=== PATIENT | male | born 1955 | race Caucasian/White ===

== ENCOUNTER → 2022-09-07 10:08 | Outpatient (CLI) | payer MEDICARE, OTHER, SELFPAY ==
[2022-09-07 18:14] LABS: Anion Gap 12.1 mEq/L (5-15); Blood Urea Nitrogen 15 mg/dl (9-20); Calcium 8.7 mg/dl (8.4-10.2); Carbon Dioxide 29 mmol/L (22.0-30.0); Chloride 99 mmol/L (98-107); Estimated Glomerular Filt Rate 113 ml/min (>60); GFR (African American) 137 ML/MIN (>60); Glucose 118 mg/dl (74-100); Potassium 4.1 mmoL/L (3.5-5.1); Sodium 136 mmol/L (136-145)
== END ==
PROVIDERS: PCP Nurse Practitioner; Visit Provider Nurse Practitioner
DX: E78.5 Hyperlipidemia, unspecified (principal); I10 Essential (primary) hypertension
CPT/HCPCS: 80048

== ENCOUNTER → 2023-02-04 23:14 | Outpatient (CLI) | payer MEDICARE, SELFPAY ==
[2023-02-04 19:38] LABS: Alanine Aminotransferase 51 U/L (12-78); Albumin Level 3.8 g/dl (3.5-5.0); Albumin/Globulin Ratio 1.2 (1.1-1.8); Alkaline Phosphatase 54 U/L (38-126); Aspartate Amino Transferase 46 U/L (17-59); Bilirubin,Total 0.5 mg/dl (0.2-1.3); Blood Urea Nitrogen 17 mg/dl (9-20); Calcium 8.9 mg/dl (8.4-10.2); Carbon Dioxide 32 mmol/L (22.0-30.0); Chol/HDL Ratio 2.9 (1-3.5); Cholesterol 214 mg/dl (140-200); Estimated Glomerular Filt Rate 85 ml/min (>60); GFR (African American) 102 ML/MIN (>60); Globulin 3.2 g/dL (1.3-3.2); Glucose 119 mg/dl (74-100); HDL Cholesterol 73 mg/dl (40-60); Sodium 134 mmol/L (136-145); Triglycerides 89 mg/dl (30-150); VLDL Cholesterol 18 mg/dL (0-40)
[2023-02-04 19:39] LABS: Basophils % 0.5 % (0.1-2.0); Eosinophils # 0.1 K/mm3 (0.0-0.4); Hematocrit 44.5 % (42.0-52.0); Hemoglobin 14.3 g/dL (14.1-18.0); Lymphocytes # 0.7 K/mm3 (0.7-4.5); Lymphocytes % 10.7 % (10-50); Mean Corpuscular HGB Conc 32.1 g/dL (31.8-35.4); Mean Corpuscular Hemoglobin 30.4 pg (27.0-31.2); Mean Corpuscular Volume 94.8 fl (80-94); Mean Platelet Volume 10.6 fl (7.4-10.4); Monocytes # 0.4 K/mm3 (0.1-1.0); Monocytes % 6.4 % (1.7-9.3); Neutrophils % 81.4 % (37.0-80.0); Platelet Count 248 K/mm3 (142-424); Red Cell Distribution Width 13.5 % (11.5-17.5); White Blood Count 6.1 K/mm3 (4.8-10.8)
[2023-02-04 19:49] LABS: Direct LDL Cholesterol 107.29 mg/dL (100-129)
[2023-02-04 19:57] LABS: 25-OH Vitamin D, Total 37.5 ng/mL (30-100)
[2023-02-04 20:02] LABS: Creatinine,Urine Random 50 mg/dL (Not Estab.)
[2023-02-04 20:10] LABS: Microalbumin < 6.000 mg/L (0-16.7); Prostate Specific Ag Screen 0.6 ng/ml (0.0-4.0); Thyroid Stimulating Hormone 1.49 uIU/mL (0.465-4.68)
[2023-02-04 20:29] LABS: Vitamin B12 634 pg/mL (239-931)
[2023-02-04 21:02] LABS: Anion Gap 8.7 mEq/L (5-15); Chloride 98 mmol/L (98-107); Potassium 4.7 mmoL/L (3.5-5.1)
== END ==
PROVIDERS: PCP Nurse Practitioner; Visit Provider Nurse Practitioner
DX: E53.8 Deficiency of other specified B group vitamins (principal); E78.5 Hyperlipidemia, unspecified; I10 Essential (primary) hypertension; R73.01 Impaired fasting glucose; E55.9 Vitamin D deficiency, unspecified; Z12.5 Encounter for screening for malignant neoplasm of prostate
CPT/HCPCS: 80053; 80061; 82043; 82306; 82570; 82607; 84443; 85025; G0103

== ENCOUNTER → 2023-06-15 09:44 | Outpatient (CLI) | payer MEDICARE, SELFPAY | PROVIDERS: PCP Nurse Practitioner; Visit Provider Nurse Practitioner | DX: S61.207A Unspecified open wound of left little finger without damage to nail, initial encounter (principal); B95.7 Other staphylococcus as the cause of diseases classified elsewhere | CPT/HCPCS: 87070; 87077; 87186; 87205 ==

== ENCOUNTER → 2023-09-15 13:28 | Outpatient (CLI) | payer MEDICARE, SELFPAY | PROVIDERS: PCP Nurse Practitioner; Visit Provider Nurse Practitioner | DX: G47.30 Sleep apnea, unspecified (principal); R40.0 Somnolence; R06.83 Snoring | CPT/HCPCS: G0399 ==

== ENCOUNTER → 2023-11-09 15:15 | Outpatient (POV) | payer MEDICARE, SELFPAY | PROVIDERS: PCP Nurse Practitioner; Visit Provider Dermatology | DX: Z00.00 Encounter for general adult medical examination without abnormal findings (principal) ==

== ENCOUNTER 2024-01-25 09:24 | Outpatient (POV) | payer MEDICARE, SELFPAY | END 2024-01-25 23:59 | disposition home or self-care (01) | LOC: SC 09:25 | PROVIDERS: PCP Nurse Practitioner; Visit Provider Dermatology | DX: Z00.00 Encounter for general adult medical examination without abnormal findings (principal) ==

== ENCOUNTER → 2024-02-28 19:57 | Outpatient (CLI) | payer MEDICARE, OTHER, SELFPAY | PROVIDERS: PCP Nurse Practitioner; Visit Provider Nurse Practitioner Family | DX: G47.33 Obstructive sleep apnea (adult) (pediatric) (principal); G47.61 Periodic limb movement disorder | CPT/HCPCS: 95811 ==

== ENCOUNTER 2024-09-18 10:19 | Outpatient (CLI) | payer MEDICARE, OTHER, SELFPAY ==
[2024-09-18 20:11] LABS: Alanine Aminotransferase 65 U/L (12-78); Alkaline Phosphatase 49 U/L (38-126); Anion Gap 8.3 mEq/L (5-15); Aspartate Amino Transferase 63 U/L (17-59); Bilirubin,Total 0.6 mg/dl (0.2-1.3); Blood Urea Nitrogen 18 mg/dl (9-20); Calcium 9.8 mg/dl (8.4-10.2); Carbon Dioxide 31 mmol/L (22.0-30.0); Chloride 103 mmol/L (98-107); Chol/HDL Ratio 2.6 (1-3.5); Cholesterol 287 mg/dl (140-200); Estimated Glomerular Filt Rate 96 ml/min (>60); GFR (African American) 117 ML/MIN (>60); Globulin 3.9 g/dL (1.3-3.2); Glucose 125 mg/dl (74-100); HDL Cholesterol 109 mg/dl (40-60); Potassium 4.3 mmoL/L (3.5-5.1); Sodium 138 mmol/L (136-145); Total Protein,Serum 7.9 g/dl (6.3-8.2); Triglycerides 88 mg/dl (30-150); VLDL Cholesterol 18 mg/dL (0-40)
[2024-09-18 20:20] LABS: Basophils % 0.8 % (0.1-2.0); Eosinophils % 0.5 % (0.1-12.0); Hematocrit 43.9 % (42.0-52.0); Hemoglobin 14.5 g/dL (14.1-18.0); Lymphocytes # 0.4 K/mm3 (0.7-4.5); Lymphocytes % 8.6 % (10-50); Mean Corpuscular Hemoglobin 31.4 pg (27.0-31.2); Mean Corpuscular Volume 95.4 fl (80-94); Mean Platelet Volume 10.5 fl (7.4-10.4); Monocytes # 0.3 K/mm3 (0.1-1.0); Monocytes % 5.2 % (1.7-9.3); Neutrophils # 4.2 K/mm3 (1.8-7.8); Neutrophils % 84.9 % (37.0-80.0); Platelet Count 198 K/mm3 (142-424); Red Blood Count 4.61 M/mm3 (4.60-6.20); Red Cell Distribution Width 13.7 % (11.5-17.5); White Blood Count 4.9 K/mm3 (4.8-10.8)
[2024-09-18 20:26] LABS: 25-OH Vitamin D, Total 39.3 ng/mL (30-100)
[2024-09-18 20:34] LABS: Direct LDL Cholesterol 164.91 mg/dL (100-129)
[2024-09-18 20:45] LABS: Prostate Specific Ag Screen 0.5 ng/ml (0.0-4.0); Thyroid Stimulating Hormone 0.91 uIU/mL (0.465-4.68)
[2024-09-18 21:04] LABS: Vitamin B12 450 pg/mL (239-931)
[2024-09-18 21:14] LABS: Hemoglobin A1C 5.9 % (4.0-6.0)
[2024-09-18 21:15] LABS: Microalbumin < 6.000 mg/L (0-16.7)
[2024-09-18 21:53] LABS: Creatinine,Urine Random 42 mg/dL (Not Estab.)
== END 2024-09-18 23:59 | disposition home or self-care (01) ==
LOC: LAB.DROPOF 09-19 10:20
PROVIDERS: PCP Nurse Practitioner; Visit Provider Nurse Practitioner
DX: Z12.5 Encounter for screening for malignant neoplasm of prostate (principal); I10 Essential (primary) hypertension; G61.81 Chronic inflammatory demyelinating polyneuritis; E53.8 Deficiency of other specified B group vitamins; R73.01 Impaired fasting glucose; E66.9 Obesity, unspecified; G47.33 Obstructive sleep apnea (adult) (pediatric); E55.9 Vitamin D deficiency, unspecified; E78.5 Hyperlipidemia, unspecified; R40.0 Somnolence; Z68.32 Body mass index [BMI] 32.0-32.9, adult; Z87.891 Personal history of nicotine dependence
CPT/HCPCS: 80053; 80061; 82043; 82306; 82570; 82607; 83036; 84443; 85025; G0103

== ENCOUNTER 2025-01-24 09:07 | Outpatient (CLI) | payer MEDICARE, OTHER, SELFPAY ==
[2025-01-24 19:33] LABS: Hemoglobin A1C 6.1 % (4.0-6.0)
[2025-01-24 20:07] LABS: Alanine Aminotransferase 58 U/L (12-78); Albumin/Globulin Ratio 1.1 (1.1-1.8); Alkaline Phosphatase 54 U/L (38-126); Anion Gap 9.6 mEq/L (5-15); Aspartate Amino Transferase 53 U/L (17-59); Bilirubin,Total 0.6 mg/dl (0.2-1.3); Blood Urea Nitrogen 24 mg/dl (9-20); Calcium 9.4 mg/dl (8.4-10.2); Carbon Dioxide 29 mmol/L (22.0-30.0); Chloride 101 mmol/L (98-107); Chol/HDL Ratio 2.4 (1-3.5); Cholesterol 231 mg/dl (140-200); Estimated Glomerular Filt Rate 84 ml/min (>60); GFR (African American) 102 ML/MIN (>60); Globulin 3.5 g/dL (1.3-3.2); Glucose 130 mg/dl (74-100); HDL Cholesterol 98 mg/dl (40-60); Potassium 4.6 mmoL/L (3.5-5.1); Sodium 135 mmol/L (136-145); Total Protein,Serum 7.5 g/dl (6.3-8.2); Triglycerides 97 mg/dl (30-150); VLDL Cholesterol 19 mg/dL (0-40)
[2025-01-24 20:55] LABS: HIV Combo NEGATIVE (Negative)
[2025-01-24 21:04] LABS: Hepatitis C Ab Qual. W/ RFX NEGATIVE (Negative)
== END 2025-01-24 23:59 | disposition home or self-care (01) ==
LOC: LAB.DROPOF 01-25 15:19
PROVIDERS: PCP Nurse Practitioner; Visit Provider Nurse Practitioner
DX: E78.5 Hyperlipidemia, unspecified (principal); I10 Essential (primary) hypertension; R73.01 Impaired fasting glucose; Z13.0 Encounter for screening for diseases of the blood and blood-forming organs and certain disorders involving the immune mechanism; E78.49 Other hyperlipidemia
CPT/HCPCS: 80053; 80061; 83036; 86803; 87389

== ENCOUNTER 2025-09-19 10:30 | Outpatient (CLI) | payer MEDICARE, OTHER, SELFPAY ==
--- OUTSIDE RECORDS SUMMARY | 2025-07-24 09:05 | XMS_ITS | Encounter Summary ---
Author Organization [place] [address] Care Team Providers Care Toy Designer Name Role Phone Becca Dumont APRN Primary Care Provider [phone] Reva Jacob MD Unavailable Reason for Visit * Reason Comments Follow-up Encounter Details Date Type Department Care Team ([facility] Contact Info) Description 07/24/2025 9:05 AM EDT Office Visit [facility] Neurology [facility] [address] [place] [address] Brien Hogan MD [address] [place] [address] CIDP (chronic inflammatory demyelinating polyneuropathy) (HCC) (Primary Dx); MGUS (monoclonal gammopathy of unknown significance); Drug-induced Chicago's syndrome; Immunosuppression Social History Tobacco Use Types Packs/Day Years Used Date Smoking Tobacco: Former Cigarettes Q uit: 11/29/1969 Smokeless Tobacco: Never Tobacco Cessation:Counseling Given: Not Answered Alcohol Use Standard Drinks/Week Comments Yes 0 (1 standard drink = 0.6 oz pur e alcohol) 5-6 times a weeks-liquor Sex and Gender Information Value Date Recorded Sex Assigned at Not on file Legal Sex Male 10:57 PM EDT Gender Identity Not on file Sexual Orientation Not on file documented as of this encounter Last Filed Vital Signs Vital Sign Reading Time Taken Comments Blood Pressure 138/58 07/24/2025 8:46 AM EDT Pulse 76 07/24/2025 8:46 AM EDT Temperature 36.8 C (98.2 F) 07/24/2025 8:46 AM EDT Respiratory Rate - - Oxygen Saturation 95% 07/24/2025 8:46 AM EDT Inhaled Oxygen Concentration - - Weight 102.1 kg (225 lb) 07/24/2025 8:46 AM EDT Height 180.3 cm (5' 11 ) 07/24/2025 8:46 AM EDT Body Mass Index 31.38 07/24/2025 8:46 AM EDT documented in this encounter Ordered Prescriptions Prescription Sig Dispense Quantity Refills Last Filled Start Date End Date predniSONE (DELTASONE) 5 mg Oral Tablet Take 3 Tablets by mouth daily. 270 Tablet 3 07/24/2025 documented in this encounter Progress Notes * Brien Hogan MD - 07/24/2025 9:05 AM EDT Assessment/Plan: CIDP associated with IgM lambda MGUS Stable. Dec Gamunex from 2g/kg q4wks to q5wks. Dec prednisone from 20mg/d to 15mg/d. Cont Vit D/Ca. Hopefully zanubrutinib will allow wean Again discussed starting a low to moderate intense exercise regimen daily such as walking for 30 minutes. Also recommend he start focusing on low-carb/fat diet. IgM Lambda MGUS Continue zanubrutinib. Likely needs a couple more months to achieve efficacy. F/u 2 mos HPI: Today's date: 07/24/2025 Last visit: 04/25/2025 Patient accompanied by/additional history obtained from: Alone Since his last visit saw Dr. Jacob and underwent additional MGUS w/u. STarted on zanubrutinib > 1 month ago. No side effects. Symptoms are otherwise very stable. He has chronic numbness in his hands and from the knees distally. He has difficulty answering whether or not he has weakness. There is no change or wearing off between IVIG cycles. He is currently getting IVIG every 4 weeks. He plans on once again going to [place] for an extended period of time in November. He would like tostrategically plan his IVIG to get it done just before he leaves and right after he returns. He plans on being there for the entire month of November and 1 to 2 weeks of December if possible. He does not eat a particular diet or exercise. Has poor balance with rapid turns but otherwise feels stable. Not using an ambulation assist device. Not falling. Current CIDP meds: IVIG (Gamunex C) 2g/kg q 4 wks over 3d @ infusion center [facility] via lashay cath Prednisone 20 mg/d Vit D3 2000IU/d Ca 1000mg/d Zanubrutinib CIDP Treatment Summary: Onset LE>UE symmetric weakness 06/13 Diagnosed with CIDP ~06/14 after suggestive EMG/NCS IVIG (octagam) started 07/15 (2g/kg q month) Brief trial of SCIG but he thought it was too laborious and changed back to IVIG. Prednisone 60mg started 09/15 (normal baseline DEXA 09/15) Prednisone wean begun 04/16 IVIG reduced to q6 wks 07/17 Port placed 08/17 DEXA scan benign 10/10/20 IVIG inc to q 5 wks due to gen weakness/dec balance 02/16 with improvement Prednisone increased to 30mg daily 1 month (07/19) then down to 20mg daily (08/19) w/ subsequent wean Prednisone jimi 10mg 01/21 with worse ankle DF so inc back to 20mg/d w/ resolution of DF weakness DEXA scan benign 01/13/23 Prednisone dose inc to 40mg/d 04/20 without much additional benefit or side effects so subsequently weaned slowly Prednisone dose inc from 10 to 20mg/d 08/22 due to bilateral DF weakness on exam Prednisone dose inc from 20 to 30mg/d 09/21 due to mild R DF weakness on exam Trial of IVIG-> vyvgart hytrulo 01/23 with resultant immediate worsening of distal UE>LE strength. Prednisone inc to 30mg/d w/o improvement. Transitioned back to IVIG q4wk 03/23 with significant improvement and prednisone dec to 20mg/d. DEXA WNL 02/20 Zanubrutinib started 07/23 Past Medical History: Diagnosis Date Arthritis Hypercholesterolemia Hypertension Spinal stenosis Patient Active Problem List Diagnosis CIDP (chronic inflammatory demyelinating polyneuropathy) (HCC) MGUS (monoclonal gammopathy of unknown significance) Immunosuppression Drug-induced Sarah's syndrome Past Surgical History: Procedure Laterality Date ANKLE FRACTURE SURGERY Right 02/27/2020 RIGHT ANKLE OPEN REDUCTION INTERNAL FIXATION MEDIAL MALLEOLUS FRACTURE; Surgeon: Inderjit Hollingsworth MD;Location: [facility]; Service: Orthopedics BACK SURGERY Lumbar surgery COLONOSCOPY HAND SURGERY IR PORT PLACEMENT EQUAL OR > 5 YEARS 08/16/2019 IR PORT PLACEMENT EQUAL OR > 5 YEARS 08/16/2019 Wilbert Dixon MD [facility] IR IR ULTRASOUND GUIDED VASCULAR ACCESS 08/16/2019 IR ULTRASOUND GUIDED VASCULAR ACCESS 08/16/2019 Wilbert Dixon MD [facility] IR LUMBAR DISC SURGERY Bilateral 11/13/2016 LUMBAR LAMINECTOMY BILATERAL MESIAL FASCIECTOMY L4/5; Surgeon: Les Hutton MD; Location: [facility]IN OR; Service: Neurosurgery SHOULDER SURGERY VASECTOMY Social History Tobacco Use Smoking status: Former Current packs/day: 0.00 Types: Cigarettes Quit date: 11/29/1969 Years since quittin.6 Smokeless tobacco: Never Vaping Use Vaping status: Never Used Substance Use Topics Alcohol use: Yes Comment: 5-6 times a weeks-liquor Drug use: No Current Outpatient Medications Medication Sig Dispense Refill aspirin 81 mg Oral Tablet, Chewable Take 81 mg by mouth daily. atorvastatin (LIPITOR) 40 mg Oral Tablet Take 40 mg by mouth daily. Cholecalciferol, Vitamin D3, 2,000 unit Oral Capsule Take 2,000 Units by mouth daily. Coenzyme Q10 100 mg Oral Capsule Take by mouth. diphenhydrAMINE (BENADRYL) 25 mg Oral Capsule Take 25 mg by mouth every 6 hours as needed for Itching. EPINEPHrine (EPIPEN) 0.3 mg/0.3 mL Inj Auto-Injector Inject 0.3 mL into the muscle as needed for Anaphylaxis. 1 Each 12 hydroCHLOROthiazide (HYDRODIURIL) 25 mg Oral Tablet immune globulin (human) Inject into the vein Every 6 weeks. lisinopriL (PRINIVIL;ZESTRIL) 40 mg Oral Tablet Take 40 mg by mouth daily. metFORMIN (GLUCOPHAGE XR) 500 mg Oral ER 24 hr tablet Take 500 mg by mouth daily (with breakfast). multivitamin (THERAGRAN) Oral Tablet Take by mouth daily. UNABLE TO FIND Take 1,000 mg by mouth. Med Name: calcium zanubrutinib (BRUKINSA) 80 mg Oral Capsule Take by mouth. zanubrutinib (BRUKINSA) 80 mg Oral Capsule Take by mouth. predniSONE (DELTASONE) 5 mg Oral Tablet Take 3 Tablets by mouth daily. 270 Tablet 3 zanubrutinib 80 mg Oral Capsule Take 2 Capsules by mouth 2 times daily. 120 Capsule 5 No current facility-administered medications for this visit. Physical Examination: Vitals: 07/24/25 0846 BP: 138/58 BP Location: Left arm Patient Position: Sitting Pulse: 76 Temp: 98.2 ??F (36.8 ??C) TempSrc: Forehead SpO2: 95% Weight: 225 lb (102.1 kg) Height: 5' 11 (1.803 m) Wt Readings from Last 20 Encounters: 07/24/25 225 lb (102.1 kg) 07/02/25 220 lb 8 oz (100 kg) 06/28/25 222 lb 14.4 oz (101.1 kg) 06/27/25 222 lb 8 oz (100.9 kg) 06/26/25 223 lb 8 oz (101.4 kg) 05/31/25 222 lb 11.2 oz (101 kg) 05/30/25 223 lb 3.2 oz (101.2 kg) 05/29/25 222 lb 8 oz (100.9 kg) 05/28/25 223 lb 6.4 oz (101.3 kg) 05/07/25 222 lb 11.2 oz (101 kg) 05/03/25 225 lb 4.8 oz (102.2 kg) 05/02/25 224 lb 1.6 oz (101.7 kg) 05/01/25 223 lb 8 oz (101.4 kg) 04/25/25 221 lb (100.2 kg) 04/05/25 218 lb 11.2 oz (99.2 kg) 04/04/25 218 lb 12.8 oz (99.2 kg) 04/03/25 219 lb 6.4 oz (99.5 kg) 03/02/25 219 lb 8 oz (99.6 kg) 03/01/25 220 lb 8 oz (100 kg) 02/28/25 220 lb 9.6 oz (100.1 kg) Cranial Nerves: PERRL EOMI, TPM, palate elevates bilaterally. Facial symmetry intact. Normal facialstrength. Normal hearing. Normal neck flexion/extension. Motor (R/L): IO 5/5, WE 5/5, Bi 5/5, Tri 5/5, Delt 5/5, HF 5/5, KF 5/5, DF 5/5, Inv 5-/5, Ev 5/5, PF 5/5. Can stand from a chair with arms crossed over chest. Sensory: UE: LT: n/a PP: n/a Vib: normal in distal D3 bilaterally LE: LT: n/a PP: n/a Vib: gradients to R knee and L prox marina Coordination: deferred Reflexes (R/L): Bi 0/0, Tri 1/1, Brachio 0/0, Patella 0/0, Ankle 0/0 Gait: Wide-based gait. Cannot walk on toes or heels. Feet slap while walking. 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 This note was created using voice recognition technology and despite proof- reading efforts may contain unintended errors. documented in this encounter Plan of Treatment Upcoming Encounters Date Type Department Care Team (Late st Contact Info) Description 09/25/2025 9:50 AM EDT Office Visit [facility] Neurology [facility] [address] [place] [address] Brien Hogan MD [address] [facility] [address] [place] [address] 10/02/2025 9:00 AM EST Appointment [place] [address] [place] [address] 10/02/2025 9:30 AM EST Appointment [facility] Cancer [place] [address] [place] [address] Kym Bell, AUTHORIZATION COORDINATOR [address] [facility] [place] [address] 10/03/2025 8:30 AM EST Appointment [place] [address] [place] [address] 10/04/2025 8:30 AM EST Appointment [address] [place] [address] documented as of this encounter Visit Diagnoses Diagnosis CIDP (chronic inflammatory demyelinating polyneuropathy) ([facility])- Primary Chronic inflammatory demyelinating polyneuritis MGUS (monoclonal gammopathy of unknown significance) 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 20mg daily Dose adjustment 04/30/2025 07/24/2025 documented as of this encounter Historical Medications * This list may reflect changes made after this encounter. zanubrutinib (BRUKINSA) 80 mg Oral Capsule Take by mouth. zanubrutinib (BRUKINSA) 80 mg Oral Capsule Take by mouth. added in this encounter Care Teams Toy Designer Relationship Specialty Start Date End Date Becca Dumont APRN [address] [place] [address] [address] [place] [address] PCP - General Nurse Practitioner 05/05/17 Reva Jacob MD [address] [place] [address] [place] [address] Medical Oncologist Internal Medicine-Hematology and Oncology 07/14/21 documented as of this encounter
--- OUTSIDE RECORDS SUMMARY | 2025-07-25 07:50 | XMS_ITS | Encounter Summary ---
Author Organization [place] [address] Care Team Providers Care Inspector Rubber Stamp Die Name Role Phone Becca Dumont APRN Primary Care Provider [phone] Reva Jacob MD Unavailable [phone] Reason for Visit * Oncology Medication Prior Authorization (Routine) - Authorization Not Needed Specialty Diagnoses / Procedures Referred By Contac t Referred To Contact Oncology Diagnoses CIDP (chronic inflammatory demyelinating polyneuropathy) (HCC) MGUS (monoclonal gammopathy of unknown significance) Procedures MN GAMUNEX/GAMUNEX C MN INJ EFGARTIGIMOD 2MG Brine Hogan MD [address] [place] [address] Phone: tel: fax: [address] [place] [address] Phone: tel: fax: Referral ID Status Reason Start Date Expiration Date Visits Requested Visits Authorized [id number] Authorization Not Needed 08/14/2022 01/25/2026 31 99 Encounter Details Date Type Department Care Team (Latest Contact Info) Description 07/25/2025 7:50 AM EDT - 07/25/2025 11:59 PM EDT Hospital Encounter [address] 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) (Primary Dx); MGUS (monoclonal gammopathy of unknown significance) Discharge Disposition: Home or Self Care Social History Tobacco Use Types Packs/Day Years Used Date Smoking Tobacco: Former Cigarettes Q uit: 11/29/1969 Smokeless Tobacco: Never Alcohol Use Standard Drinks/Week Comments Yes 0 [...] Sign Reading Time Taken Comments Blood Pressure 162/82 07/25/2025 11:17 AM EDT Pulse 55 07/25/2025 11:17 AM EDT Temperature 36.5 C (97.7 F) 07/25/2025 11:17 AM EDT Respiratory Rate 18 07/25/2025 11:1 7 AM EDT Oxygen Saturation 99% 07/25/2025 11: 17 AM EDT Inhaled Oxygen Concentration - - Weight 101.3 kg (223 lb 6.4 oz) 07/25/2025 8:17 AM EDT Height - - Body Mass Index 31.16 07/24/2025 8:46 AM EDT documented in this encounter Medications at Time of Discharge aspirin 81 mg Oral Tablet, Chewable Take [...] muscle as needed for Anaphylaxis. 1 Each 07/22/2018 hydroCHLOROthiazide (HYDRODIURIL) 25 mg Oral Tablet 09/08/2022 immune globulin (human) Inject into the vein Every 6 weeks. lisinopriL (PRINIVIL;ZESTRIL) 40 mg Oral Tablet Take 40 mg by mouth daily. 09/09/2022 metFORMIN (GLUCOPHAGE XR) 500 mg Oral ER 24 hr tablet Take 500 mg by mouth daily (with breakfast). 03/22/2025 multivitamin (THERAGRAN) Oral Tablet Take by mouth daily. predniSONE (DELTASONE) 5 mg Oral Tablet Take 3 Tablets by mouth daily. 270 Tablet 3 07/24/2025 UNABLE TO FIND Take 1,000 mg by mouth. Med Name: calcium zanubrutinib (BRUKINSA) 80 mg Oral Capsule Take by mouth. zanubrutinib (BRUKINSA) 80 mg Oral Capsule Take by mouth. zanubrutinib 80 mg Oral CapsuleIndications:Wal denstrom's macroglobulinemia (HCC) Take 2 Capsules by mouth 2 times daily. 120 Capsule 5 07/09/2025 documented as of this encounter Discharge Disposition Disposition Code Departure Means Destination Home or Self Care documented in this encounter Miscellaneous Notes * Patient Instructions - Sofie Phelps RN - 07/25/2025 8:00 AM EDT [facility] Thank you for entrusting the [facility] with your care. We hope you are pleased with your outpatient care and services. Because we are most concerned with your health, we suggest you carefully read the following discharge instructions: Your Discharge Instructions: MEDICATION INSTRUCTIONS: Treatment received today: tylenol, benadryl, and IVIG. Reviewed medications administered today and possible side effects Dizziness and sleepiness are possible side effects of pain medication. When taking pain medications, do not drink alcohol or drive. ACTIVITY INSTRUCTIONS: Rest today, increase activity as tolerated. DIET INSTRUCTIONS: as tolerated FOLLOW-UP CARE: Call your doctor for a follow-up appointment: Notify physician for complications such as: Fever over 101*, Rash, Hives, difficulty breathing, unrelieved nausea or pain, redness or swelling in one limb greater than the other, constipation, diarrhea, bleeding Please contact your physician if you have problems related to your procedure or if symptoms persistor worsen. If physician is unavailable, go to the Emergency Room. Additional Instructions: Our hours of operation are Wednesday - Wednesday 8:00 AM - 4:30 PM. [facility] [place] [id number] [id number] documented in this encounter Plan of Treatment Upcoming Encounters Date Type Department Care Team (Late st Contact Info) Description 09/25/2025 9:50 AM EDT Office Visit [facility] [address] [place] [address] Brien Hogna MD [address] [facility] [address] [place] [address] 10/02/2025 9:00 AM EST Appointment [address] [place] [address] 10/02/2025 9:30 AM EST Appointment [address] [place] [address] Kym Bell, KIKO [address] [place] [address] [place] [address] 10/03/2025 8:30 AM EST Appointment [address] [place] [address] 10/04/2025 8:30 AM EST [address]ointment [address] [place] [address] documented as of this encounter Visit Diagnoses Diagnosis CIDP (chronic inflammatory demyelinating polyneuropathy) ([facility])- Primary Chronic inflammatory demyelinating polyneuritis MGUS (monoclonal gammopathy of unknown significance) Monoclonal paraproteinemia documented in this encounter Administered Medications Inactive Administered Medications - up to 1 most recent administrations Medication Order MAR Action Action Date Dose Rate Site 0.9 % NaCl infusion Intravenous, at 30 mL/hr, CONTINUOUS, Starting on Wed07/25/25 at 0830, Until Wed07/25/25 at 2028, For door liner helper, Dx: 1. 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),MGUS (monoclonal gammopathy of unknown significance) Rate/Dose Change 07/25/2025 11:16 AM EDT 468 mL/hr acetaminophen (TYLENOL) tablet 650 mg 650 mg, Oral, ONCE, 1 dose, On Wed07/25/25 at 0830, Pre-med. Give 30 minutes prior to IVIG. Maximum adult dose of acetaminophen is 4000 mg from all sources in 24 hours., Dx: 1. 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),MGUS (monoclonal gammopathy of unknown significance) Given 07/25/2025 8:29 AM EDT 650 mg diphenhydrAMINE (BENADRYL) tablet 25 mg 25 mg, Oral, ONCE, 1 dose, On Wed07/25/25 at 0830, Pre-med. Give 30 minutes prior to IVIG., Dx: 1. 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),MGUS (monoclonal gammopathy of unknown significance) Given 07/25/2025 8:29 AM EDT 25 mg heparin flush 100 unit/mL injection 500 Units 500 Units, Intravenous, PRN, Starting on Wed07/25/25 at 0818, Until Wed07/27/25 at 0415, Line Care, For Venous Access Device care and maintenance., Dx: 1. 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),MGUS (monoclonal gammopathy of unknown significance) Given 07/25/2025 11:20 AM EDT 500 Units immune globul G-gly-IgA avg 46 (GAMUNEX-C) 10 % 10 g 10 g, Intravenous, at 25-750 mL/hr, ONCE, 1 dose, On Wed07/25/25 at 0830, 70g x3 days every 5 weeks starting 07/25/25 for CIDP: 0-30 minutes= 1.2 mL/kg/hr= 117 mL/hr 30-60 minutes= 2.4 mL/kg/hr= 234 mL/hr 60-90 minutes= 3.6 mL/kg/hr= 351 mL/hr Maximum Rate= 4.8 mL/kg/hr= 468 mL/hr, Administer over 30 Minutes, Dx: 1. CIDP (chronic inflammatory demyelinating polyneuropathy) ([facility]) 2. MGUS (monoclonal gammopathy of unknown significance)Indications: CIDP (chronic inflammatory demyelinating polyneuropathy) ([facility]),MGUS (monoclonal gammopathy of unknown significance) Rate/Dose Verify 07/25/2025 11:01 AM EDT 468 mL/hr immune globul G-gly-IgA avg 46 (GAMUNEX-C) 10 % 20 g 20 g, Intravenous, at 25-750 mL/hr, ONCE, 1 dose, On Wed07/25/25 at 0830, 70g x3 days every 5 weeks starting 07/25/25 for CIDP: 0-30 minutes= 1.2 mL/kg/hr= 117 mL/hr 30-60 minutes= 2.4 mL/kg/hr= 234 mL/hr 60-90 minutes= 3.6 mL/kg/hr= 351 mL/hr Maximum Rate= 4.8 mL/kg/hr= 468 mL/hr, Administer over 3 Hours, Dx: 1. CIDP (chronic inflammatory demyelinating polyneuropathy) ([facility]) 2. MGUS (monoclonal gammopathy of unknown significance)Indications: CIDP (chronic inflammatory demyelinating polyneuropathy) ([facility]),MGUS (monoclonal gammopathy of unknown significance) Rate/Dose Verify 07/25/2025 10:57 AM EDT 468 mL/hr immune globul G-gly-IgA avg 46 (GAMUNEX-C) 10 % 20 g 20 g, Intravenous, at 25-750 mL/hr, ONCE, 1 dose, On Wed07/25/25 at 0830, 70g x3 days every 5 weeks starting 07/25/25 for CIDP: 0-30 minutes= 1.2 mL/kg/hr= 117 mL/hr 30-60 minutes= 2.4 mL/kg/hr= 234 mL/hr 60-90 minutes= 3.6 mL/kg/hr= 351 mL/hr Maximum Rate= 4.8 mL/kg/hr= 468 mL/hr, Administer over 2 Hours, Dx: 1. CIDP (chronic inflammatory demyelinating polyneuropathy) ([facility]) 2. MGUS (monoclonal gammopathy of unknown significance)Indications: CIDP (chronic inflammatory demyelinating polyneuropathy) ([facility]),MGUS (monoclonal gammopathy of unknown significance) Rate/Dose Verify 07/25/2025 10:19 AM EDT 468 mL/hr immune globul G-gly-IgA avg 46 (GAMUNEX-C) 10 % 20 g 20 g, Intravenous, at 25-750 mL/hr, ONCE, 1 dose, On Wed07/25/25 at 0830, 70g x3 days every 5 weeks starting 07/25/25 for CIDP: 0-30 minutes= 1.2 mL/kg/hr= 117 mL/hr 30-60 minutes= 2.4 mL/kg/hr= 234 mL/hr 60-90 minutes= 3.6 mL/kg/hr= 351 mL/hr Maximum Rate= 4.8 mL/kg/hr= 468 mL/hr, Administer over 1 Hours, Dx: 1. CIDP (chronic inflammatory demyelinating polyneuropathy) ([facility]) 2. MGUS (monoclonal gammopathy of unknown significance)Indications: CIDP (chronic inflammatory demyelinating polyneuropathy) ([facility]),MGUS (monoclonal gammopathy of unknown significance) Rate/Dose Change 07/25/2025 9:43 AM EDT 351 mL/hr sodium chloride 0.9 % sterile syringe 10 mL 10 mL, Intravenous, PRN, 6 doses, Starting on Wed07/25/25 at 0818, Until Wed07/27/25 at 0415, Line Care, For initial access of Venous Access Device., Dx: 1. CIDP (chronic inflammatory demyelinating polyneuropathy) ([facility]) 2. MGUS (monoclonal gammopathy of unknown significance)Indications: CIDP (chronic inflammatory demyelinating polyneuropathy) ([facility]),MGUS (monoclonal gammopathy of unknown significance) Given 07/25/2025 8:21 AM EDT 10 mL sodium chloride 0.9% syringe 10 mL 10 mL, Intravenous, PRN, 6 doses, Starting on Wed07/25/25 at 0818, Until Wed07/27/25 at 0415, Line Care, For Venous Access Device care and maintenance., Dx: 1. CIDP (chronic inflammatory demyelinating polyneuropathy) ([facility]) 2. MGUS (monoclonal gammopathy of unknown significance)Indications: CIDP (chronic inflammatory demyelinating polyneuropathy) ([facility]),MGUS (monoclonal gammopathy of unknown significance) Given 07/25/2025 11:20 AM EDT 20 mL documented in this encounter Care Teams Inspector Rubber Stamp Die Relationship Specialty Start Date End Date Becca Dumont APRN [address] [facility] [address] [place] [address] PCP - General Nurse Practitioner 05/05/17 Reva Jacob MD [address] [place] [address] [place] [address] Medical Oncologist Internal Medicine-Hematology and Oncology 07/14/21 documented as of this encounter
--- OUTSIDE RECORDS SUMMARY | 2025-07-26 07:46 | XMS_ITS | Encounter Summary ---
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 [address] Phone: tel: fax: Referral ID Status Reason Start Date Expiration Date Visits Requested Visits Authorized [id number] Authorization Not Needed 08/14/2022 01/25/2026 31 99 Encounter Details Date Type Department Care Team (Latest Contact Info) Description 07/26/2025 7:46 AM EDT - 07/26/2025 11:59 PM EDT Hospital Encounter [address] 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) (Primary [...] Sign Reading Time Taken Comments Blood Pressure 137/68 07/26/2025 10:59 AM EDT Pulse 56 07/26/2025 10:59 AM EDT Temperature 36.3 C (97.3 F) 07/26/2025 10:59 AM EDT Respiratory Rate 18 07/26/2025 10:59 AM EDT Oxygen Saturation 98% 07/26/2025 10:59 AM EDT Inhaled Oxygen Concentration - - Weight 101.6 kg (224 lb) 07/26/2025 8:17 AM EDT Height - - Body Mass Index 31.24 07/24/2025 8:46 AM EDT documented in this [...] encounter Miscellaneous Notes * Patient Instructions - Hannah Willis RN - 07/26/2025 8:00 AM EDT .[facility] Discharge Instructions Thank you for entrusting the [facility] with your care. We hope you are pleased with your outpatient care and services. Because we are most concerned with your health, we suggest you carefully read the following discharge instructions: Your Discharge Instructions: MEDICATION INSTRUCTIONS: Treatment received today: IVIG Reviewed medications administered today and possible side [...] - Wednesday 8:00 AM - 4:30 PM. [facility] [address] [place] [address] [phone] [address] documented in this encounter Plan of Treatment Upcoming Encounters Date Type Department Care Team (Late st Contact Info) Description 09/25/2025 9:50 AM EDT Office Visit SEP Neurology [facility] [address] [place] [address] Brien Hogan MD [address] [facility] [address] [place] [address] 10/02/2025 9:00 AM EST [address]ointment [address] [place] [address] 10/02/2025 9:30 AM EST Appointment [address] [place] [address] Kym Bell, KIKO [address] [place] [address] 10/03/2025 8:30 AM EST Appointment [address] [place] [address] 10/04/2025 8:30 AM EST Appointment [address] [place] [place] [address] documented as of this encounter Visit Diagnoses Diagnosis CIDP (chronic inflammatory demyelinating polyneuropathy) ([facility])- Primary Chronic inflammatory demyelinating polyneuritis MGUS (monoclonal gammopathy of unknown significance) Monoclonal paraproteinemia documented in this encounter Administered Medications Inactive Administered Medications - up to 1 most recent administrations Medication Order MAR Action Action Date Dose Rate Site 0.9 % NaCl infusion Intravenous, at 30 mL/hr, CONTINUOUS, Starting on Celia 07/26/25 at 0815, Until Celia 07/26/25 at 2014, 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 CIDP (chronic inflammatory demyelinating polyneuropathy) ([facility]) 2. MGUS (monoclonal gammopathy of unknown significance)Indications: CIDP (chronic inflammatory demyelinating polyneuropathy) ([facility]),MGUS (monoclonal gammopathy of unknown significance) New Bag 07/26/2025 8:21 AM EDT 30 mL/hr heparin flush 100 unit/mL injection 500 Units 500 Units, Intravenous, PRN, Starting on Celia 07/26/25 at 0807, Until 07/28/25 at 0413, Line Care, For Venous Access Device care and maintenance., Dx: 1. CIDP (chronic inflammatory demyelinating polyneuropathy) ([facility]) 2. 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),MGUS (monoclonal gammopathy of unknown significance) Given 07/26/2025 11:00 AM EDT 500 Units immune globul G-gly-IgA avg 46 (GAMUNEX-C) 10 % 10 g 10 g, Intravenous, at 117-468 mL/hr, ONCE, 1 dose, On Celia 07/26/25 at 1215, 70g x3 days every 5 weeks starting 07/25/25 for CIDP: 0-30 minutes= 1.2 mL/kg/hr= 117 mL/hr 30-60 minutes= 2.4 mL/kg/hr= 234 mL/hr 60-90 minutes= 3.6 mL/kg/hr= 351 mL/hr Maximum Rate= 4.8 mL/kg/hr= 468 mL/hr, Administer over 30 Minutes, Dx: 1. CIDP (chronic inflammatory demyelinating polyneuropathy) ([facility]) 2. MGUS (monoclonal gammopathy of unknown significance)Indications: CIDP (chronic inflammatory demyelinating polyneuropathy) ([facility]),MGUS (monoclonal gammopathy of unknown significance) Rate/Dose Change 07/26/2025 10:51 AM EDT 468 mL/hr immune globul G-gly-IgA avg 46 (GAMUNEX-C) 10 % 20 g 20 g, Intravenous, at 117-468 mL/hr, ONCE, 1 dose, On Celia 07/26/25 at 0815, 70g x3 days every 5 weeks starting [...] (monoclonal gammopathy of unknown significance) Rate/Dose Change 07/26/2025 9:30 AM EDT 351 mL/hr immune globul G-gly-IgA avg 46 (GAMUNEX-C) 10 % 20 g 20 g, Intravenous, at 117-468 mL/hr, ONCE, 1 dose, On Celia 07/26/25 at 1015, 70g x3 days every 5 weeks starting [...] (HCC),MGUS (monoclonal gammopathy of unknown significance) Rate/Dose Verify 07/26/2025 10:07 AM EDT 468 mL/hr immune globul G-gly-IgA avg 46 (GAMUNEX-C) 10 % 20 g 20 g, Intravenous, at 117-468 mL/hr, ONCE, 1 dose, On Celia 07/26/25 at 1115, 70g x3 days every 5 weeks starting [...] polyneuropathy) (HCC),MGUS (monoclonal gammopathy of unknown significance) IV Started 07/26/2025 10:17 AM EDT 20 g 468 mL/hr sodium chloride 0.9 % sterile syringe 10 mL 10 mL, Intravenous, PRN, 6 doses, Starting on Celia 07/26/25 at 0807, Until 07/28/25 at 0413, Line Care, For initial access of Venous Access Device., Dx: 1. 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),MGUS (monoclonal gammopathy of unknown significance) Given 07/26/2025 8:17 AM EDT 10 mL sodium chloride 0.9% syringe 10 mL 10 mL, Intravenous, PRN, 6 doses, Starting on Celia 07/26/25 at 0807, Until 07/28/25 at 0413, Line Care, For Venous Access Device care and maintenance., Dx: 1. 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),MGUS (monoclonal gammopathy of unknown significance) Given 07/26/2025 11:00 AM EDT 20 mL documented in this encounter Orders Medications Ordered That Kevin ht Not Have Been Administered Count Last Ordered Date First Ordered Date acetaminophen (TYLENOL) tablet 650 mg 1 diphenhydrAMINE (BENADRYL) tablet 25 mg 1 0 07/26/2025 documented in this encounter Care Teams Project Controls Scheduler Relationship Specialty Start Date End Date Becca Dumont APRN [address] [facility] [address] [place] [address] PCP - General Nurse Practitioner 05/05/17 Reva Jacob MD [address] [place] [address] [place] [address] Medical Oncologist Internal Medicine-Hematology and Oncology 07/14/21 documented as of this encounter
--- OUTSIDE RECORDS SUMMARY | 2025-07-27 07:45 | XMS_ITS | Encounter Summary ---
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 [address] Phone: tel: fax: Referral ID Status Reason Start Date Expiration Date Visits Requested Visits Authorized [id number] Authorization Not Needed 08/14/2022 01/25/2026 31 99 Encounter Details Date Type Department Care Team (Latest Contact Info) Description 07/27/2025 7:45 AM EDT - 07/27/2025 11:59 PM EDT Hospital Encounter [address] 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) (Primary [...] Sign Reading Time Taken Comments Blood Pressure 175/80 07/27/2025 11:36 AM EDT Pulse 58 07/27/2025 11:36 AM EDT Temperature 36.3 C (97.3 F) 07/27/2025 11:36 AM EDT Respiratory Rate 18 07/27/2025 11:3 6 AM EDT Oxygen Saturation 98% 07/27/2025 11: 36 AM EDT Inhaled Oxygen Concentration - - Weight 101.2 kg (223 lb 1.6 oz) 07/27/2025 8:04 AM EDT Height - - Body Mass Index 31.12 07/24/2025 8:46 AM EDT documented in this [...] encounter Miscellaneous Notes * Patient Instructions - Beatrice Roberto RN - 07/27/2025 8:00 AM EDT [facility] Discharge Instructions Thank you for entrusting the Cancer [facility] with your care. We hope [...] - Wednesday 8:00 AM - 4:30 PM. [facility] [phone] [place] [address] documented in this encounter Plan of Treatment Upcoming Encounters Date Type Department Care Team (Late st Contact Info) Description 09/25/2025 9:50 AM EDT Office Visit SEP Neurology [facility] [address] [place] [address] Brien Hogan MD [address] [place] [address] 10/02/2025 9:00 AM EST Appointment [address] [place] [address] 10/02/2025 9:30 AM EST Appointment [address] [place] [address] Kym Bell, DIESEL SCOOP OPERATOR [address] [place] [address] 10/03/2025 8:30 AM EST Appointment [address] [place] [address] 10/04/2025 8:30 AM EST Appointment [address] [place] [address] documented as of this encounter Visit Diagnoses Diagnosis CIDP (chronic inflammatory demyelinating polyneuropathy) ([facility])- Primary Chronic inflammatory demyelinating polyneuritis MGUS (monoclonal gammopathy of unknown significance) Monoclonal paraproteinemia documented in this encounter Administered Medications Inactive Administered Medications - up to 1 most recent administrations Medication Order MAR Action Action Date Dose Rate Site 0.9 % NaCl infusion Intravenous, at 30 mL/hr, CONTINUOUS, Starting on Wed07/27/25 at 0815, Until Wed07/27/25 at 2014, 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),MGUS (monoclonal gammopathy of unknown significance) IV Restarted 07/27/2025 11:30 AM EDT 30 mL/hr heparin flush 100 unit/mL injection 500 Units 500 Units, Intravenous, PRN, Starting on Wed07/27/25 at 0803, Until Wed07/29/25 at 0403, Line Care, For Venous Access Device care and maintenance., Dx: 1. 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),MGUS (monoclonal gammopathy of unknown significance) Given 07/27/2025 11:39 AM EDT 500 Units immune globul G-gly-IgA avg 46 (GAMUNEX-C) 10 % 10 g 10 g, Intravenous, at 117-468 mL/hr, ONCE, 1 dose, On Wed07/27/25 at 1300, 70g x3 days every 5 weeks starting [...] (monoclonal gammopathy of unknown significance) Rate/Dose Change 07/27/2025 9:06 AM EDT 234 mL/hr immune globul G-gly-IgA avg 46 (GAMUNEX-C) 10 % 20 g 20 g, Intravenous, at 117-468 mL/hr, ONCE, 1 dose, On Wed07/27/25 at 0815, 70g x3 days every 5 [...] (monoclonal gammopathy of unknown significance) Rate/Dose Change 07/27/2025 10:29 AM EDT 468 mL/hr immune globul G-gly-IgA avg 46 (GAMUNEX-C) 10 % 20 g 20 g, Intravenous, at 117-468 mL/hr, ONCE, 1 dose, On Wed07/27/25 at 1015, 70g x3 days every 5 [...] (monoclonal gammopathy of unknown significance) Rate/Dose Change 07/27/2025 9:52 AM EDT 351 mL/hr immune globul G-gly-IgA avg 46 (GAMUNEX-C) 10 % 20 g 20 g, Intravenous, at 117-468 mL/hr, ONCE, 1 dose, On Wed07/27/25 at 1200, 70g x3 days every 5 weeks starting [...] (monoclonal gammopathy of unknown significance) IV Started 07/27/2025 10:59 AM EDT 20 g 468 mL/hr sodium chloride 0.9 % sterile syringe 10 mL 10 mL, Intravenous, PRN, 6 doses, Starting on Wed07/27/25 at 0803, Until 07/29/25 at 0403, Line Care, For initial access of Venous Access Device., Dx: 1. 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),MGUS (monoclonal gammopathy of unknown significance) Given 07/27/2025 8:23 AM EDT 10 mL sodium chloride 0.9% syringe 10 mL 10 mL, Intravenous, PRN, 6 doses, Starting on Wed07/27/25 at 0803, Until 07/29/25 at 0403, Line Care, For Venous Access Device care and maintenance., Dx: 1. 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),MGUS (monoclonal gammopathy of unknown significance) Given 07/27/2025 11:39 AM EDT 20 mL documented in this encounter Orders Medications Ordered That Kevin ht Not Have Been Administered Count Last Ordered Date First Ordered Date acetaminophen (TYLENOL) tablet 650 mg 1 diphenhydrAMINE (BENADRYL) tablet 25 mg 1 0 07/27/2025 documented in this encounter Care Teams Consulting Project Director Relationship Specialty Start Date End Date Becca Dumont APRN [address] [facility] [address] [place] [address] PCP - General Nurse Practitioner 05/05/17 Reva Jacob MD [address] [place] [address] [place] [address] Medical Oncologist Internal Medicine-Hematology and Oncology 07/14/21 documented as of this encounter
--- OUTSIDE RECORDS SUMMARY | 2025-07-31 08:30 | XMS_ITS | Encounter Summary ---
Author Organization [place] [address] Care Team Providers Care Shower Screen Installer Name Role Phone Becca Dumont APRN Primary Care Provider [phone] Reva Jacob MD Unavailable [phone] Encounter Details Date Type Department Care Team (Latest Contact Info) Description 07/31/2025 8:30 AM EDT - 07/31/2025 8:59 AM EDT Hospital Encounter [facility] [address] [place] [address] MGUS (monoclonal gammopathy of unknown significance) (Primary Dx); Waldenstrom's macroglobulinemia; CIDP (chronic inflammatory demyelinating polyneuropathy) (HCC) Discharge Disposition: Home or Self Care Social [...] on file documented as of this encounter Medications at Time of Discharge [...] or Self Care documented in this encounter Plan of Treatment Upcoming Encounters Date Type Department Care Team (Late st Contact Info) Description 09/25/2025 9:50 AM EDT Office Visit SEP Neurology [facility] [address] [place] [address] Brien Hogan MD [address] [place] [address] 10/02/2025 9:00 AM EST Appointment [facility] [address] [place] [address] 10/02/2025 9:30 AM EST Appointment [place] [address] [place] [address] Kym Bell, PNEUMATIC TESTER [address] [facility] [address] [place], [place] [address] 10/03/2025 8:30 AM EST Appointment [facility] [address] [place], [place] [id number] 10/04/2025 8:30 AM EST Appointment [address] [place], [place] [id number] documented as of this encounter Procedures Procedure Name Priority Date/Time Associated Diagnosis Comments CBC WITH DIFF STAT 07/31/2025 9:13 AM EDT MGUS (monoclonal gammopathy of unknown significance) Waldenstrom's macroglobulinemia COMPREHENSIVE METABOLIC PANEL STAT 07/31/2025 9:13 AM EDT MGUS (monoclonal gammopathy of unknown significance) Waldenstrom's macroglobulinemia documented in this encounter Results * (ABNORMAL) COMPREHENSIVE METABOLIC PANEL (07/31/2025 9:13 AM EDT) Sodium 136 136 - 145 mmol/L 07/31/2025 9:35 AM [facility] Potassium 3.7 3.5 - 5.0 mmol/L 07/31/2025 9:35 AM [facility] Chloride 97(L) 98 - 107 mmol/L 07/31/2025 9:35 AM [facility] Total CO2 29 22 - 29 mmol/L 07/31/2025 9:35 AM [facility] Anion Gap 10 7 - 16 mmol/L 07/31/2025 9:35 AM [facility] Calcium 9.1 8.8 - 10.4 mg/dL 07/31/2025 9:35 AM [facility] Glucose Lvl 130(H) 70 - 99 mg/dL 07/31/2025 9:35 AM [facility] BUN 15 8 - 23 mg/dL 07/31/2025 9:35 AM [facility] Creatinine 0.91 0.67 - 1.30 mg/dL 07/31/2025 9:35 AM [facility] Albumin 3.5 3.2 - 4.6 gm/dL 07/31/2025 9:35 AM EDT [facility] Total Protein 9.2(H) 6.4 - 8.3 gm/dL 07/31/2025 9:35 AM EDT [facility] Bili Total 0.6 0.2 - 1.4 mg/dL 07/31/2025 9:35 AM T [facility] ALT 44(H) <=41 U/L 07/31/2025 9:35 AM EDT [facility] AST 39 <=40 U/L 07/31/2025 9:35 AM EDT [facility] Alk Phos 47 40 - 129 U/L 07/31/2025 9:35 AM T [facility] eGFR (CKD-EPIcr 2020) 92 >=60 mL/min/1.7 3 m2 07/31/2025 9:35 AM T [facility] Comment:Estimated GFR was ca lculated using the CKD-EPIcr (2020) equation refit without race. The equation is recommended by the National Kidney Foundation - [place] [employer] Nephrology Task Force. Blood VENOUS STRUCTURE / Unknown Port / Unknown 07/31/2025 9:13 AM EDT 07/31/2025 9:15 AM EDT us Kym Bell PNEUMATIC TESTER CHEMISTRY ORDERABLES Fin al Result [facility] [address] [place] [address] * (ABNORMAL) CBC WITH DIFF (07/31/2025 9:13 AM EDT) WBC 6.1 3.7 - 10.3 x10(3)/mc L 07/31/2025 9:19 AM EDT [facility] RBC 4.29(L) 4.60 - 6.10 x10(6)/mc L 07/31/2025 9:19 AM T [facility] Hgb 13.1(L) 13.7 - 17.5 g/dL 07/31/2025 9:19 AM [facility] Hct 40.6 40.0 - 51.0 % 07/31/2025 9:19 AM [facility] MCV 94.6 80.0 - 100.0 fL 07/31/2025 9:19 AM [facility] MCH 30.5 26.0 - 34.0 pg 07/31/2025 9:19 AM [facility] MCHC 32.3 30.7 - 35.5 g/dL 07/31/2025 9:19 AM [facility] RDW 13.0 <=14.9 % 07/31/2025 9:19 AM [facility] Platelet 183 155 - 369 x10(3)/mc L 07/31/2025 9:19 AM [facility] MPV 10.6 8.8 - 12.5 fL 07/31/2025 9:19 AM [facility] Neut # Prelim 5.0 1.6 - 6.1 x10(3)/mc L 07/31/2025 9:19 AM [facility] Comment:Preliminary automate d absolute neutrophil count. Value may change if manual differential is indicated. Neut Percent 81.9 % 07/31/2025 9:19 AM [facility] Comment:Neutrophils equals s egs plus bands Imm Gran% 0.2 % 07/31/2025 9:19 AM [facility] Comment:Automated count of m etamyelocytes, myelocytes and promyelocytes. Lymph Percent 8.2 % 07/31/2025 9:19 AM [facility] [place] Percent 9.2 % 07/31/2025 9:19 AM [facility] Eos Percent 0.2 % 07/31/2025 9:19 AM [facility] Baso Percent 0.3 % 07/31/2025 9:19 AM [facility] Neut # 5.0 1.6 - 6.1 x10(3)/mc L 07/31/2025 9:19 AM [facility] Comment:Neutrophils equals s egs plus bands IMMGRAN# 0.0 0.0 - 0.1 x10(3)/mc L 07/31/2025 9:19 AM [facility] Comment:Automated count of m etamyelocytes, myelocytes and promyelocytes. An absolute IG <0.1 is reported as 0.0. Lymph # 0.5(L) 1.2 - 3.9 x10(3)/mc L 07/31/2025 9:19 AM EDT [facility] [place] # 0.6 0.3 - 0.9 x10(3)/mc L 07/31/2025 9:19 AM EDT [facility] Eos# 0.0 0.0 - 0.5 x10(3)/mc L 07/31/2025 9:19 AM EDT [facility] Baso # 0.0 0.0 - 0.1 x10(3)/ L 07/31/2025 9:19 AM EDT [facility] Blood VENOUS STRUCTURE / Unknown Port / Unknown 07/31/2025 9:13 AM EDT 07/31/2025 9:15 AM EDT Kym Bell PNEUMATIC TESTER HEMATOLOGY ORDERABLES Fi nal Result [facility] [address] [id number] documented in this encounter Visit Diagnoses Diagnosis MGUS (monoclonal gammopathy of unknown significance)- Primary Monoclonal paraproteinemia Waldenstrom's macroglobulinemia [facility] Macroglobulinemia CIDP (chronic inflammatory demyelinating polyneuropathy) ([facility]) Chronic inflammatory demyelinating polyneuritis documented in this encounter Administered Medications Inactive Administered Medications - up to 1 most recent administrations Medication Order MAR Action Action Date Dose Rate Site heparin flush 100 unit/mL injection 500 Units 500 Units, Intravenous, PRN, Starting on Wed07/31/25 at 0902, Until Celia 08/02/25 at 0420, Line Care, For Venous Access Device care and maintenance., Dx: 1. MGUS (monoclonal gammopathy of unknown significance) 2. CIDP (chronic inflammatory demyelinating polyneuropathy) ([facility])Indications:MGUS (monoclonal gammopathy of unknown significance),CIDP (chronic inflammatory demyelinating polyneuropathy) ([facility]) Given 07/31/2025 9:12 AM EDT 500 Units sodium chloride 0.9 % sterile syringe 10 mL 10 mL, Intravenous, PRN, 6 doses, Starting on 07/31/25 at 0902, Until Celia 08/02/25 at 0420, Line Care, For initial access of Venous Access Device., Dx: 1. MGUS (monoclonal gammopathy of unknown significance) 2. CIDP (chronic inflammatory demyelinating polyneuropathy) ([facility])Indications:MGUS (monoclonal gammopathy of unknown significance),CIDP (chronic inflammatory demyelinating polyneuropathy) ([facility]) Given 07/31/2025 9:12 AM EDT 10 mL sodium chloride 0.9% syringe 10 mL 10 mL, Intravenous, PRN, 6 doses, Starting on 07/31/25 at 0902, Until Celia 08/02/25 at 0420, Line Care, For Venous Access Device care and maintenance., Dx: 1. MGUS (monoclonal gammopathy of unknown significance) 2. CIDP (chronic inflammatory demyelinating polyneuropathy) ([facility])Indications:MGUS (monoclonal gammopathy of unknown significance),CIDP (chronic inflammatory demyelinating polyneuropathy) ([facility]) Given 07/31/2025 9:12 AM EDT 20 mL documented in this encounter Care Teams Shower Screen Installer Relationship Specialty Start Date End Date Becca Dumont APRN [address] [facility] [address] [place] [address] PCP - General Nurse Practitioner 05/05/17 Reva Jacob MD [address] [place] [address] [address] [place] [id number] Medical Oncologist Internal Medicine-Hematology and Oncology 07/14/21 documented as of this encounter
--- OUTSIDE RECORDS SUMMARY | 2025-07-31 09:00 | XMS_ITS | Encounter Summary ---
Author Organization [place] [address] Care Team Providers Care Guest Relations Representative Name Role Phone Becca Dumont APRN Primary Care Provider [phone] Reva Jacob MD Unavailable [phone] Reason for Visit * Reason Comments Follow-up CIDP (chronic inflam matory demyelinating polyneuropathy) Other Gamunex -C IVIG Encounter Details Date Type Department Care Team (Latest Contact Info) Description 07/31/2025 9:00 AM EDT - 07/31/2025 11:59 PM EDT Hospital Encounter [facility] [address] [place] [address] Kym Bell APRN [address] [place], [place] [id number] Waldenstrom's macroglobulinemia (Primary Dx); Encounter for long-term current use of high risk medication; CIDP (chronic inflammatory demyelinating polyneuropathy) ([facility]) Discharge Disposition: Home or Self Care Social [...] Sign Reading Time Taken Comments Blood Pressure 126/65 07/31/2025 9:08 AM EDT Pulse 71 07/31/2025 9:08 AM EDT Temperature 36.5 C (97.7 F) 07/31/2025 9:08 AM EDT Respiratory Rate 16 07/31/2025 9:08 AM EDT Oxygen Saturation 97% 07/31/2025 9:08 AM EDT Inhaled Oxygen Concentration - - Weight 100.8 kg (222 lb 4.8 oz) 07/31/2025 9:08 AM EDT Height 180.3 cm (5' 11 ) 07/31/2025 9:08 AM EDT Body Mass Index 31 07/31/2025 9:08 AM EDT documented in this encounter Medications [...] or Self Care documented in this encounter Progress Notes * [place] Kym Spaulding, KIKO - 07/31/2025 9:00 AM EDT Images from the original note were not included. Patient: Gael Simon [facility]: [id number] Date of : 1955 Age: 70 y.o. Date of Service: 07/31/2025 HEMATOLOGY/ONCOLOGY FOLLOW UP VISIT Primary Oncologist: Reva Jacob MD DIAGNOSIS & TREATMENT HISTORY: Oncology History Overview Note IgM Lambda MGUS, poss WM/LPL - Low-intermediate risk (non-IgG M-spike but < 1.5 g/dL and nl sFLCratio), only scant amt of clonal lambda B cells and 5% of marrow w/ CD20+ atypical lymphoid aggregrates and inability to detect MYD88 but not able to detect a reliable wild-type locked nucleic acid sequence thus, felt to only about 15% sensitive. Given that WM/LPL can produce a biologically active p araprotein and he's had a clinically refractory course of CIDP, treat like WM/LPL. - Zanbrutinib 160 bid starting CIDP - Prednisone, IVIg No history exists. Cancer Staging No matching staging information was found for the patient. 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 He continues to follow with neurology with transition of IVIG from every 4 week administration to every 5 week administration as well as reduction in prednisone from 20 mg daily to 15 mg daily for management of chronic inflammatory demyelinating polyneuropathy with plans to further wean prednisone pending response to Zanubrutinib PHYSICAL EXAM: Vitals: 07/31/25 0908 BP: 126/65 Pulse: 71 Resp: 16 Temp: 97.7 ??F (36.5 ??C) SpO2: 97% Wt Readings from Last 3 Encounters: 07/31/25 222 lb 4.8 oz (100.8 kg) 07/27/25 223 lb 1.6 oz (101.2 kg) 07/26/25 224 lb (101.6 kg) ECO Physical Exam Vitals reviewed. Constitutional: General: He is not in acute distress. Appearance: He is not ill-appearing. Comments: NAD, at baseline. Eyes: General: No scleral icterus. Pulmonary: Effort: Pulmonary effort is normal. No respiratory distress. Musculoskeletal: Left lower leg: No edema. Skin: General: Skin is warm and dry. Coloration: Skin is not pale. Findings: No erythema or rash. Neurological: Mental Status: He is alert and oriented to person, place, and time. Gait: Gait abnormal (secondary to CIDP; stable). Psychiatric: Mood and Affect: Mood and affect normal. MEDICAL DATA REVIEW: Medication, Allergies, Labs, Images, Path Reviewed. From 05/17/25 Bone marrow, left posterior iliac crest aspiration and biopsy: - Normocellular marrow with 30% cellularity. - Flow cytometry studies show 0.7% monoclonal lambda B cells, positive for CD19, CD20, Cd11c and negative for CD5 and CD10. - Atypical lymphoid aggregates composed of small CD20 positive B cells account for about 5% of marrow cellularity. - CD138 positive polyclonal plasma cells account for about 3% of marrow cellularity. - Congo red stain is negative for amyloid material. - Adequate storage iron with no increased ringed sideroblasts. FISH Analysis Plasma Cell Myeloma Prognostic Panel Results: Normal FISH Analysis Low-Grade/Small B-Cell Lymphoma FISH Results: Normal Cytogenetic Oncology Chromosome Analysis Karyotype: 46,XY[20] Interpretation: NORMAL MALE KARYOTYPE Results: Test Result MYD88 Mutation(s) See Note Notes: MYD88 Mutation(s) - Although no mutation was detected we were unable to obtain a reliable sequence with [employer] SUPPORT MANAGER. Results are based on standard Ronnie sequencing without INTEGRATED LOGISTICS SUPPORT MANAGER only, so the sensitivity of the assay is approximately 15%. WBC Date Value Ref Range Status 07/31/2025 6.1 3.7 - 10.3 x10(3)/mcL Final 06/14/2017 5.4 4.0 - 11.0 x10(3)/mcL Final Hgb Date Value Ref Range Status 07/31/2025 13.1 (L) 13.7 - 17.5 g/dL Final 06/14/2017 16.1 13.5 - 17.1 gm/dL Final MCV Date Value Ref Range Status 07/31/2025 94.6 80.0 - 100.0 fL Final 06/14/2017 92.6 82.5 - 99.8 fL Final Platelet Date Value Ref Range Status 07/31/2025 183 155 - 369 x10(3)/mcL Final 06/14/2017 130 (L) 144 - 423 x10(3)/mcL Final Latest Reference Range & Units 06/21/24 08:18 05/07/25 08:15 05/28/25 09:20 IgM 40 - 230 mg/dL 266 (H) 309 (H) 356 (H) Viscosity, Serum <=1.50 cP 1.22 Latest Reference Range & Units 07/05/23 08:21 06/21/24 08:18 05/07/25 08:15 Seaview Free Light Chains 3.30 - 19.40 mg/L 18.71 23.22 (H) 21.55 (H) Lambda Free Light Chains 5.70 - 26.30 mg/L 16.94 18.94 19.74 Seaview/Lambda FLC Ratio 0.26 - 1.65 1.10 1.23 1.09 07/05/23 08:21 06/21/24 08:18 05/07/25 08:15 SPE/IT Interp M-protein not apparent on serum protein electrophoresis. This test has been reviewed and approved by Noa Rothman MD, PhD. M-protein not apparent on serum protein electrophoresis. M-protein not apparent on immunotyping (IT). The electrophoretic pattern is consistent with a polyclonalincrease of gamma globulins. This pattern may be observed in a variety of chronic inflammatory, infectious, or autoimmune processes. This test has been reviewed and approved by Roman Thompson MD, ANDREI. The electrophoretic pattern is consistent with a polyclonal increase of gamma globulins. This pattern may be observed in a variety of chronic inflammatory, infectious, or autoimmune processes. M-protein not apparent on immunotyping (IT). This test has been reviewed and approved by Andra Irvin MD. From 07/31/25 CMP: Serum creatinine stable; persistent elevation in serum total protein levels (9.2 <-- 9.5 <-- 9.3) with normal serum albumin and total calcium levels ASSESSMENT & PLAN Gael was seen today for follow-up and other. Diagnoses and all orders for this visit: Waldenstrom's macroglobulinemia - CBC WITH DIFF; Future - COMPREHENSIVE METABOLIC PANEL; Future - LACTATE DEHYDROGENASE; Future Encounter for long-term current use of high risk medication - CBC WITH DIFF; Future - COMPREHENSIVE METABOLIC PANEL; Future - LACTATE DEHYDROGENASE; Future CIDP (chronic inflammatory demyelinating polyneuropathy) (HCC) Waldenstrom Macroglobulinemia/Lymphoplasmacytic Lymphoma Bone marrow from 04/2025 with only a scant amount of clonal lambda B- cells and 5% of marrow with CD20+ atypical lymphoid aggregrates and inability to detect MYD88 but not able to detect a reliable wild-type locked nucleic acid sequence thus, felt to only about 15% sensitive. Given that Waldenstrom Macroglobulinemia/Lymphoplasmacytic Lymphoma can produce a biologically active paraprotein and he has had a clinically refractory course of CIDP, it is reasonable to trial course of directed Waldenstrom Macroglobulinemia/Lymphoplasmacytic Lymphoma therapy with Zanbrutinib -Started Zanbrutinib 06/16/25, tolerating well -CBC and CMP reviewed from today, stable -Continue Zanbrutinib 160 mg twice daily -Coordinate follow-up with next IVIG infusion, if continues to tolerate well plan to change frequency of OV to every 3 months CIDP (chronic inflammatory demyelinating polyneuropathy) Continued management per neurology Continued IVIG and steroid taper per neurology Pain No complaints of pain today Prior pain related to peripheral neuropathy and bilateral shoulder pain Advance Directives: Living Will and POA: To be arranged Code status: To be addressed. Dispo: Return in about 4 weeks (around 08/28/2025) for SERIGO OV, LAB APT. Thank you for the opportunity to assist in the care of this patient, please feel free to contact meif I can be of any assistance. Kym Bell APRN Hematology and Medical Oncology [facility] documented in this encounter Plan of Treatment Upcoming Encounters Date Type Department Care Team (Late st Contact Info) Description 09/25/2025 9:50 AM EDT Office Visit SE[facility] Neurology [facility] [address] [place] [id number] Brien Hogan MD [address] [place] [address] 10/02/2025 9:00 AM EST Appointment [place] [phone] [place] [address] 10/02/2025 9:30 AM EST Appointment [place] [phone] [place] [address] Kym Bell APRN [address] [place] [address] [place] [address] 10/03/2025 8:30 AM EST Appointment [place] [phone] [place] [address] 10/04/2025 8:30 AM EST Appointment [place] [phone] [place] [address] documented as of this encounter Results * LACTATE DEHYDROGENASE (08/28/2025 8:20 AM EDT) Pathologist [facility] 211 135 - 225 U/L 08/28/2025 8:41 AM EDT [facility] Blood VENOUS STRUCTURE / Unknown Port / Unknown 08/28/2025 8:20 AM EDT 08/28/2025 8:22 AM EDT us Kym Bell APRN CHEMISTRY ORDERABLES Fin al Result [facility] [address] [place] [address] * (ABNORMAL) COMPREHENSIVE METABOLIC PANEL (08/28/2025 8:20 AM EDT) Sodium 137 136 - 145 mmol/L 08/28/2025 8:41 AM [facility] Potassium 3.8 3.5 - 5.0 mmol/L 08/28/2025 8:41 AM [facility] Chloride 100 98 - 107 mmol/L 08/28/2025 8:41 AM [facility] Total CO2 28 22 - 29 mmol/L 08/28/2025 8:41 AM [facility] Anion Gap 9 7 - 16 mmol/L 08/28/2025 8:41 AM [facility] Calcium 9.3 8.8 - 10.4 mg/dL 08/28/2025 8:41 AM [facility] Glucose Lvl 114(H) 70 - 99 mg/dL 08/28/2025 8:41 AM [facility] BUN 16 8 - 23 mg/dL 08/28/2025 8:41 AM [facility] Creatinine 0.88 0.67 - 1.30 mg/dL 08/28/2025 8:41 AM [facility] Albumin 3.9 3.2 - 4.6 gm/dL 08/28/2025 8:41 AM [facility] Total Protein 7.2 6.4 - 8.3 gm/dL 08/28/2025 8:41 AM [facility] Bili Total 0.5 0.2 - 1.4 mg/dL 08/28/2025 8:41 AM [facility] ALT 45(H) <=41 U/L 08/28/2025 8:41 AM [facility] AST 36 <=40 U/L 08/28/2025 8:41 AM [facility] Alk Phos 52 40 - 129 U/L 08/28/2025 8:41 AM [facility] eGFR (CKD-EPIcr 2020) 94 >=60 mL/min/1.7 3 m2 08/28/2025 8:41 AM [facility] Comment:Estimated GFR was ca lculated using the CKD-EPIcr (2020) equation refit without race. The equation is recommended by the National Kidney Foundation - [place] [employer] Neph[employer] Task Force. Blood VENOUS STRUCTURE / Unknown Port / Unknown 08/28/2025 8:20 AM EDT 08/28/2025 8:22 AM EDT us Kym Bell EMT DISPATCHER CHEMISTRY ORDERABLES Fin al Result [facility] [address] [place] [address] * (ABNORMAL) CBC WITH DIFF (08/28/2025 8:20 AM EDT) WBC 6.5 3.7 - 10.3 x10(3)/mc L 08/28/2025 8:26 AM EDT [facility] RBC 4.22(L) 4.60 - 6.10 x10(6)/mc L 08/28/2025 8:26 AM EDT [facility] Hgb 13.1(L) 13.7 - 17.5 g/dL 08/28/2025 8:26 AM EDT [facility] Hct 40.2 40.0 - 51.0 % 08/28/2025 8:26 AM EDT [facility] MCV 95.3 80.0 - 100.0 fL 08/28/2025 8:26 AM EDT [facility] MCH 31.0 26.0 - 34.0 pg 08/28/2025 8:26 AM EDT [facility] MCHC 32.6 30.7 - 35.5 g/dL 08/28/2025 8:26 AM EDT [facility] RDW 13.0 <=14.9 % 08/28/2025 8:26 AM EDT [facility] Platelet 221 155 - 369 x10(3)/mc L 08/28/2025 8:26 AM EDT [facility] MPV 10.1 8.8 - 12.5 fL 08/28/2025 8:26 AM EDT [facility] Neut # Prelim 5.1 1.6 - 6.1 x10(3)/mc L 08/28/2025 8:26 AM EDT [facility] Comment:Preliminary automate d absolute neutrophil count. Value may change if manual differential is indicated. Neut Percent 78.5 % 08/28/2025 8:26 AM EDT [facility] Comment:Neutrophils equals s egs plus bands Imm Gran% 0.2 % 08/28/2025 8:26 AM EDT [facility] Comment:Automated count of m etamyelocytes, myelocytes and promyelocytes. Lymph Percent 11.9 % 08/28/2025 8:26 AM EDT [facility] Gallia Percent 7.7 % 08/28/2025 8:26 AM EDT [facility] Eos Percent 1.1 % 08/28/2025 8:26 AM EDT [facility] Baso Percent 0.6 % 08/28/2025 8:26 AM EDT [facility] Neut # 5.1 1.6 - 6.1 x10(3)/mc L 08/28/2025 8:26 AM EDT [facility] Comment:Neutrophils equals s egs plus bands IMMGRAN# 0.0 0.0 - 0.1 x10(3)/mc L 08/28/2025 8:26 AM EDT [facility] Comment:Automated count of m etamyelocytes, myelocytes and promyelocytes. An absolute IG <0.1 is reported as 0.0. Lymph # 0.8(L) 1.2 - 3.9 x10(3)/mc L 08/28/2025 8:26 AM EDT [facility] Gallia # 0.5 0.3 - 0.9 x10(3)/mc L 08/28/2025 8:26 AM EDT [facility] Eos# 0.1 0.0 - 0.5 x10(3)/mc L 08/28/2025 8:26 AM EDT [facility] Baso # 0.0 0.0 - 0.1 x10(3)/mc L 08/28/2025 8:26 AM EDT [facility] Blood VENOUS STRUCTURE / Unknown Port / Unknown 08/28/2025 8:20 AM EDT 08/28/2025 8:22 AM EDT us Kym Bell EMT DISPATCHER HEMATOLOGY ORDERABLES Fi nal Result [facility] [address] [place] [address] documented in this encounter Visit Diagnoses Diagnosis Waldenstrom's macroglobulinemia (HCC)- Primary Macroglobulinemia Encounter for long-term current use of high risk medication CIDP (chronic inflammatory demyelinating polyneuropathy) (HCC) Chronic inflammatory demyelinating polyneuritis documented in this encounter Care Teams Guest Relations Representative Relationship Specialty Start Date End Date Becca Dumont APRN [address] [facility] [address] [place] [address] PCP - General Nurse Practitioner 05/05/17 Reva Jacob MD [address] [facility] [address] Medical Oncologist Internal Medicine-Hematology and Oncology 07/14/21 documented as of this encounter
--- OUTSIDE RECORDS SUMMARY | 2025-08-28 07:49 | XMS_ITS | Encounter Summary ---
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 [address] Phone: tel: fax: Referral ID Status Reason Start Date Expiration Date Visits Requested Visits Authorized [id number] Authorization Not Needed 08/14/2022 01/25/2026 31 99 Encounter Details Date Type Department Care Team (Latest Contact Info) Description 08/28/2025 7:49 AM EDT - 08/28/2025 11:59 PM EDT Hospital Encounter [address] 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) (Primary Dx); MGUS (monoclonal gammopathy of unknown significance); Waldenstrom's macroglobulinemia; Encounter for long-term current use of high risk medication Discharge Disposition: Home or Self Care Social [...] Sign Reading Time Taken Comments Blood Pressure 157/62 08/28/2025 11:25 AM EDT Pulse 61 08/28/2025 11:25 AM EDT Temperature 36.5 C (97.7 F) 08/28/2025 11:25 AM EDT Respiratory Rate 18 08/28/2025 11:25 AM EDT Oxygen Saturation 99% 08/28/2025 11:25 AM EDT Inhaled Oxygen Concentration - - Weight - - Height - - Body Mass Index - - documented in this encounter Medications at Time [...] Patient Instructions - Hannah Willis RN - 08/28/2025 8:00 AM EDT .[facility] Discharge Instructions Thank you for entrusting the [facility] with your care. We hope [...] - Wednesday 8:00 AM - 4:30 PM. [facility] [id number] [place] [address] [phone] [place] [address] documented in this encounter Plan of Treatment Upcoming Encounters Date Type Department Care Team (Late st Contact Info) Description 09/25/2025 9:50 AM EDT Office Visit SEP Neurology [facility] [address] [place] [place] [address] Brien Hogan MD [address] [facility] [address] [place] [address] 10/02/2025 9:00 AM EST Appointment [address] [address] [place] [address] 10/02/2025 9:30 AM EST [address]ment [address] [place] [address] Kym Bell, LINING CEMENTER [address] [place] [address] [place] [address] 10/03/2025 8:30 AM EST Appointment [address] [place] [place] [address] 10/04/2025 8:30 AM EST Appointment [address] [place] [place] [address] documented as of this encounter Procedures Procedure Name Priority Date/Time Associated Diagnosis Comments CBC WITH DIFF KARLA 08/28/2025 8:20 AM EDT Waldenstrom's macroglobulinemia Encounter for long-term current use of high risk medication LACTATE DEHYDROGENASE KARLA 08/28/2025 8:20 AM EDT Waldenstrom's macroglobulinemia Encounter for long-term current use of high risk medication COMPREHENSIVE METABOLIC PANEL KARLA 08/28/2025 8:20 AM EDT Waldenstrom's macroglobulinemia Encounter for long-term current use of high risk medication documented in this encounter Results * LACTATE DEHYDROGENASE (08/28/2025 8:20 AM EDT) LDH 211 135 - 225 U/L 08/28/2025 8:41 AM EDT [facility] Blood VENOUS STRUCTURE / Unknown Port / Unknown 08/28/2025 8:20 AM EDT 08/28/2025 8:22 AM EDT us Kym Bell LINING CEMENTER CHEMISTRY ORDERABLES Fin al Result [facility] [address] [place] [address] * (ABNORMAL) COMPREHENSIVE METABOLIC PANEL (08/28/2025 8:20 AM EDT) Sodium 137 136 - 145 mmol/L 08/28/2025 8:41 AM EDT [facility] Potassium 3.8 3.5 - 5.0 mmol/L 08/28/2025 8:41 AM T [facility] Chloride 100 98 - 107 mmol/L 08/28/2025 8:41 AM T [facility] Total CO2 28 22 - 29 mmol/L 08/28/2025 8:41 AM T [facility] Anion Gap 9 7 - 16 mmol/L 08/28/2025 8:41 AM [facility] Calcium 9.3 8.8 - 10.4 mg/dL 08/28/2025 8:41 AM [facility] Glucose Lvl 114(H) 70 - 99 mg/dL 08/28/2025 8:41 AM T [facility] BUN 16 8 - 23 mg/dL 08/28/2025 8:41 AM T [facility] Creatinine 0.88 0.67 - 1.30 mg/dL 08/28/2025 8:41 AM T [facility] Albumin 3.9 3.2 - 4.6 gm/dL 08/28/2025 8:41 AM [facility] Total Protein 7.2 6.4 - 8.3 gm/dL 08/28/2025 8:41 AM T [facility] Bili Total 0.5 0.2 - 1.4 mg/dL 08/28/2025 8:41 AM EDT [facility] ALT 45(H) <=41 U/L 08/28/2025 8:41 AM EDT [facility] AST 36 <=40 U/L 08/28/2025 8:41 AM EDT [facility] Alk Phos 52 40 - 129 U/L 08/28/2025 8:41 AM EDT [facility] eGFR (CKD-EPIcr 2020) 94 >=60 mL/min/1.7 3 m2 08/28/2025 8:41 AM EDT [facility] Comment:Estimated GFR was ca lculated using the CKD-EPIcr (2020) equation refit without race. The equation is recommended by the National Kid[employer] - [place] [employer] Nephrology Task Force. Blood VENOUS STRUCTURE / Unknown Port / Unknown 08/28/2025 8:20 AM EDT 08/28/2025 8:22 AM EDT us Kym Bell LINING CEMENTER CHEMISTRY ORDERABLES Fin al Result [facility] [address] [place] [address] * (ABNORMAL) CBC WITH DIFF (08/28/2025 8:20 AM EDT) WBC 6.5 3.7 - 10.3 x10(3)/mc L 08/28/2025 8:26 AM EDT [facility] RBC 4.22(L) 4.60 - 6.10 x10(6)/mc L 08/28/2025 8:26 AM EDT [facility] Hgb 13.1(L) 13.7 - 17.5 g/dL 08/28/2025 8:26 AM EDT [facility] Hct 40.2 40.0 - 51.0 % 08/28/2025 8:26 AM EDT [facility] MCV 95.3 80.0 - 100.0 fL 08/28/2025 8:26 AM EDT [facility] MCH 31.0 26.0 - 34.0 pg 08/28/2025 8:26 AM [facility] MCHC 32.6 30.7 - 35.5 g/dL 08/28/2025 8:26 AM [facility] RDW 13.0 <=14.9 % 08/28/2025 8:26 AM [facility] Platelet 221 155 - 369 x10(3)/mc L 08/28/2025 8:26 AM [facility] MPV 10.1 8.8 - 12.5 fL 08/28/2025 8:26 AM [facility] Neut # Prelim 5.1 1.6 - 6.1 x10(3)/mc L 08/28/2025 8:26 AM [facility] Comment:Preliminary automate d absolute neutrophil count. Value may change if manual differential is indicated. Neut Percent 78.5 % 08/28/2025 8:26 AM [facility] Comment:Neutrophils equals s egs plus bands Imm Gran% 0.2 % 08/28/2025 8:26 AM [facility] Comment:Automated count of m etamyelocytes, myelocytes and promyelocytes. Lymph Percent 11.9 % 08/28/2025 8:26 AM [facility] Mclean Percent 7.7 % 08/28/2025 8:26 AM [facility] Eos Percent 1.1 % 08/28/2025 8:26 AM [facility] Baso Percent 0.6 % 08/28/2025 8:26 AM [facility] Neut # 5.1 1.6 - 6.1 x10(3)/mc L 08/28/2025 8:26 AM [facility] Comment:Neutrophils equals s egs plus bands IMMGRAN# 0.0 0.0 - 0.1 x10(3)/mc L 08/28/2025 8:26 AM [facility] Comment:Automated count of m etamyelocytes, myelocytes and promyelocytes. An absolute IG <0.1 is reported as 0.0. Lymph # 0.8(L) 1.2 - 3.9 x10(3)/mc L 08/28/2025 8:26 AM [facility] Mclean # 0.5 0.3 - 0.9 x10(3)/mc L 08/28/2025 8:26 AM EDT [facility] Eos# 0.1 0.0 - 0.5 x10(3)/mc L 08/28/2025 8:26 AM EDT [facility] Baso # 0.0 0.0 - 0.1 x10(3)/mc L 08/28/2025 8:26 AM EDT [facility] Blood VENOUS STRUCTURE / Unknown Port / Unknown 08/28/2025 8:20 AM EDT 08/28/2025 8:22 AM EDT us Kym Bell LINING CEMENTER HEMATOLOGY ORDERABLES Fi nal Result [facility] [address] [place] [address] documented in this encounter Visit Diagnoses Diagnosis CIDP (chronic inflammatory demyelinating polyneuropathy) ([facility])- Primary Chronic inflammatory demyelinating polyneuritis MGUS (monoclonal gammopathy of unknown significance) Monoclonal paraproteinemia Waldenstrom's macroglobulinemia ([facility]) Macroglobulinemia Encounter for long-term current use of high risk medication documented in this encounter Administered Medications Inactive Administered Medications - up to 1 most recent administrations Medication Order MAR Action Action Date Dose Rate Site 0.9 % NaCl infusion Intravenous, at 30 mL/hr, CONTINUOUS, Starting on Wed08/28/25 at 0815, Until Wed08/28/25 at 2014, For line driver, Dx: 1. CIDP (chronic inflammatory demyelinating polyneuropathy) ([facility]) 2. MGUS (monoclonal gammopathy of unknown significance)Indications: CIDP (chronic inflammatory demyelinating polyneuropathy) ([facility]),MGUS (monoclonal gammopathy of unknown significance) Rate/Dose Change 08/28/2025 11:20 AM EDT 480 mL/hr heparin flush 100 unit/mL injection 500 Units 500 Units, Intravenous, PRN, Starting on Wed08/28/25 at 0804, Until Wed08/30/25 at 0411, Line Care, For Venous Access Device care and maintenance., Dx: 1. CIDP (chronic inflammatory demyelinating polyneuropathy) ([facility]) 2. MGUS (monoclonal gammopathy of unknown significance)Indications: CIDP (chronic inflammatory demyelinating polyneuropathy) ([facility]),MGUS (monoclonal gammopathy of unknown significance) Given 08/28/2025 11:28 AM EDT 500 Units immune globul G-gly-IgA avg 46 (GAMUNEX-C) 10 % 10 g 10 g, Intravenous, at 25-750 mL/hr, ONCE, 1 dose, On Wed08/28/25 at 0815, 70g x3 days every 5 weeks starting 07/25/25 for CIDP: For CIDP: 0-30 minutes= 1.2 mL/kg/hr= 120mL/hr 30-60 minutes= 2.4 mL/kg/hr= 240mL/hr 60-90 minutes= 3.6 mL/kg/hr= 360mL/hr Maximum Rate= 4.8 mL/kg/hr= 480mL/hr, Administer over 30 Minutes, Dx: 1. CIDP (chronic inflammatory demyelinating polyneuropathy) ([facility]) 2. MGUS (monoclonal gammopathy of unknown significance)Indications: CIDP (chronic inflammatory demyelinating polyneuropathy) ([facility]),MGUS (monoclonal gammopathy of unknown significance) Rate/Dose Verify 08/28/2025 9:22 AM EDT 240 mL/hr immune globul G-gly-IgA avg 46 (GAMUNEX-C) 10 % 20 g 20 g, Intravenous, at 25-750 mL/hr, ONCE, 1 dose, On Wed08/28/25 at 0815, 70g x3 days every 5 weeks starting 07/25/25 for CIDP:For CIDP: 0-30 minutes= 1.2 mL/kg/hr= 120mL/hr 30-60 minutes= 2.4 mL/kg/hr= 240mL/hr 60-90 minutes= 3.6 mL/kg/hr= 360mL/hr Maximum Rate= 4.8 mL/kg/hr= 480mL/hr, Administer over 3 Hours, Dx: 1. CIDP (chronic inflammatory demyelinating polyneuropathy) ([facility]) 2. MGUS (monoclonal gammopathy of unknown significance)Indications: CIDP (chronic inflammatory demyelinating polyneuropathy) ([facility]),MGUS (monoclonal gammopathy of unknown significance) Rate/Dose Verify 08/28/2025 11:05 AM EDT 480 mL/hr immune globul G-gly-IgA avg 46 (GAMUNEX-C) 10 % 20 g 20 g, Intravenous, at 25-750 mL/hr, ONCE, 1 dose, On Wed08/28/25 at 0815, 70g x3 days every 5 weeks starting 07/25/25 for CIDP: For CIDP: 0-30 minutes= 1.2 mL/kg/hr= 120mL/hr 30-60 minutes= 2.4 mL/kg/hr= 240mL/hr 60-90 minutes= 3.6 mL/kg/hr= 360mL/hr Maximum Rate= 4.8 mL/kg/hr= 480L/hr, Administer over 2 Hours, Dx: 1. 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),MGUS (monoclonal gammopathy of unknown significance) Given 08/28/2025 11:28 AM EDT 20 mL documented in this encounter Orders Medications Ordered That Kevin ht Not Have Been Administered Count Last Ordered Date First Ordered Date acetaminophen (TYLENOL) tablet 650 mg 1 diphenhydrAMINE (BENADRYL) tablet 25 mg 1 0 08/28/2025 documented in this encounter Care Teams Sampling Expert Relationship Specialty Start Date End Date Becca Dumont APRN [facility] [place] [address] PCP - General Nurse Practitioner 05/05/17 Reva Jacob MD [address] [place] [address] [id number] Medical Oncologist Internal Medicine-Hematology and Oncology 07/14/21 documented as of this encounter
--- OUTSIDE RECORDS SUMMARY | 2025-08-29 07:54 | XMS_ITS | Encounter Summary ---
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 [address] Phone: tel: fax: Referral ID Status Reason Start Date Expiration Date Visits Requested Visits Authorized [id number] Authorization Not Needed 08/14/2022 01/25/2026 31 99 Encounter Details Date Type Department Care Team (Latest Contact Info) Description 08/29/2025 7:54 AM EDT - 08/29/2025 11:59 PM EDT Hospital Encounter [address] 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 Discharge Instructions Thank you for entrusting the [facility] with your care. We hope you are [...] - Wednesday 8:00 AM - 4:30 PM. [facility] [phone] [place] [address] documented in this encounter Plan of Treatment Upcoming Encounters Date Type Department Care Team (Late st Contact Info) Description 09/25/2025 9:50 AM EDT Office Visit SEP Neurology [facility] [address] [place] [address] Brien Hogan MD [address] [place] [address] [place] [address] 10/02/2025 9:00 AM EST Appointment [address] [place] [address] 10/02/2025 9:30 AM EST Appointment [address] [place] [address] Kym Bell, SENIOR SALES REPRESENTATIVE [address] [place] [address] 10/03/2025 8:30 AM EST Appointment [address] [place] [address] 10/04/2025 8:30 AM EST Appointment [address] [place] [address] documented as of this encounter Visit Diagnoses Diagnosis CIDP (chronic inflammatory demyelinating polyneuropathy) ([facility])- Primary Chronic inflammatory demyelinating polyneuritis MGUS (monoclonal gammopathy of unknown significance) Monoclonal paraproteinemia documented in this encounter Administered Medications Inactive Administered Medications - up to 1 most recent administrations Medication Order MAR Action Action Date Dose Rate Site 0.9 % NaCl infusion Intravenous, at 30 mL/hr, CONTINUOUS, Starting on Wed08/29/25 at 0815, Until Wed08/29/25 at 2014, 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 CIDP (chronic inflammatory demyelinating polyneuropathy) ([facility]) 2. 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 CIDP (chronic inflammatory demyelinating polyneuropathy) ([facility]) 2. 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),MGUS (monoclonal gammopathy of unknown significance) Given 08/29/2025 11:14 AM EDT 20 mL documented in this encounter Orders Medications Ordered That Kevin ht Not Have Been Administered Count Last Ordered Date First Ordered Date acetaminophen (TYLENOL) tablet 650 mg 1 11/2024 diphenhydrAMINE (BENADRYL) tablet 25 mg 1 1 documented in this encounter Care Teams Hide Mill Worker Relationship Specialty Start Date End Date Becca Dumont, SENIOR SALES REPRESENTATIVE [address] [facility] [address] [place] [address] PCP - General Nurse Practitioner 05/05/17 Reva Jacob MD [address] [place] [address] [place] [address] Medical Oncologist Internal Medicine-Hematology and Oncology 07/14/21 documented as of this encounter
--- OUTSIDE RECORDS SUMMARY | 2025-08-30 07:53 | XMS_ITS | Encounter Summary ---
Author Organization [place] [address] Care Team Providers Care Hog Handler Name Role Phone Becca Dumont APRN Primary Care Provider [phone] Reva Jacob MD Unavailable [phone] Reason for Visit * Oncology Medication Prior Authorization (Routine) - Authorization Not Needed Specialty Diagnoses / Procedures Referred By Contac t Referred To Contact Oncology Diagnoses CIDP (chronic inflammatory demyelinating polyneuropathy) (HCC) MGUS (monoclonal gammopathy of unknown significance) Procedures NM GAMUNEX/GAMUNEX C NM INJ EFGARTIGIMOD 2MG Brien Hogan MD [address] [place] [address] Phone: tel: fax: [address] [place] [address] Phone: tel: fax: Referral ID Status Reason Start Date Expiration Date Visits Requested Visits Authorized [id number] Authorization Not Needed 08/14/2022 01/25/2026 31 99 Encounter Details Date Type Department Care Team (Latest Contact Info) Description 08/30/2025 7:53 AM EDT - 08/30/2025 11:59 PM EDT Hospital Encounter [address] [place] [address] CIDP (chronic inflammatory demyelinating polyneuropathy) [...] Sign Reading Time Taken Comments Blood Pressure 159/80 08/30/2025 11:12 AM EDT Pulse 55 08/30/2025 11:12 AM EDT Temperature 36.5 C (97.7 F) 08/30/2025 11:12 AM EDT Respiratory Rate 18 08/30/2025 11:1 2 AM EDT Oxygen Saturation 98% 08/30/2025 11: 12 AM EDT Inhaled Oxygen Concentration - - Weight 100.6 kg (221 lb 12.8 oz) 08/30/2025 8:17 AM EDT Height - - Body Mass Index 30.93 08/28/2025 8:12 AM EDT documented in this [...] encounter Miscellaneous Notes * Patient Instructions - Shona Nelson RN - 08/30/2025 8:00 AM EDT [facility] Discharge Instructions Thank you for entrusting the [facility] with your care. We hope you are pleased with your outpatient care and services. Because we are most concerned with your health, we suggest you carefully read the following discharge instructions: Your Discharge Instructions: MEDICATION INSTRUCTIONS: Treatment received today: IVIG Dizziness and sleepiness are possible side effects of pain medication. When taking pain medications, do not drink alcohol or drive. ACTIVITY INSTRUCTIONS: No activity restrictions DIET INSTRUCTIONS: As tolerated FOLLOW-UP CARE: Call your doctor for a follow-up appointment: Please contact your physician if you have problems related to your procedure or if symptoms persistor worsen. If physician is unavailable, go to the Emergency Room. Additional Instructions: Our hours of operation are Wednesday - Wednesday 8:00 AM - 4:30 PM. [facility] [place] [address] Entrance # [place] [id number] [place] [id number] [place] [address] documented in this encounter Plan of Treatment Upcoming Encounters Date Type Department Care Team (Late st Contact Info) Description 09/25/2025 9:50 AM EDT Office Visit SEP Neurology [facility] [address] [place] [address] Brien Hogan MD [address] [place] [address] 10/02/2025 9:00 AM EST Appointment [place] [address] [place] [address] 10/02/2025 9:30 AM EST Appointment [place] [address] [place] [address] Kym Bell, HYDROGEN PLANT OPERATOR [address] [place] [address] [place] [address] 10/03/2025 8:30 AM EST Appointment [address] [place] [address] 10/04/2025 8:30 AM EST Appointment [address] [place] [address] documented as of this encounter Visit Diagnoses Diagnosis CIDP (chronic inflammatory demyelinating polyneuropathy) ([facility])- Primary Chronic inflammatory demyelinating polyneuritis MGUS (monoclonal gammopathy of unknown significance) Monoclonal paraproteinemia documented in this encounter Administered Medications Inactive Administered Medications - up to 1 most recent administrations Medication Order MAR Action Action Date Dose Rate Site 0.9 % NaCl infusion Intravenous, at 30 mL/hr, CONTINUOUS, Starting on Celia 08/30/25 at 0815, Until Celia 08/30/25 at 2014, For business line controller, Dx: 1. 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 CIDP (chronic inflammatory demyelinating polyneuropathy) ([facility]) 2. MGUS (monoclonal gammopathy of unknown significance)Indications: CIDP (chronic inflammatory demyelinating polyneuropathy) ([facility]),MGUS (monoclonal gammopathy of unknown significance) Given 08/30/2025 11:10 AM EDT 500 Units immune globul G-gly-IgA avg 46 (GAMUNEX-C) 10 % 10 g 10 g, Intravenous, at 25-750 mL/hr, ONCE, 1 dose, On Celia 08/30/25 at 0815, 70g x3 days every 5 weeks starting 07/25/25 for CIDP: For CIDP: 0-30 minutes= 1.2 mL/kg/hd=885 mL/hr 30-60 minutes= 2.4 mL/kg/hr= 240mL/hr 60-90 minutes= 3.6 mL/kg/hr= 360mL/hr Maximum Rate= 4.8 mL/kg/hr= 480mL/hr, Administer over 30 Minutes, Dx: 1. CIDP (chronic inflammatory demyelinating polyneuropathy) ([facility]) 2. MGUS (monoclonal gammopathy of unknown significance)Indications: CIDP (chronic inflammatory demyelinating polyneuropathy) ([facility]),MGUS (monoclonal gammopathy of unknown significance) Rate/Dose Verify 08/30/2025 9:06 AM EDT 240 mL/hr immune globul G-gly-IgA avg 46 (GAMUNEX-C) 10 % 20 g 20 g, Intravenous, at 25-750 mL/hr, ONCE, 1 dose, On Celia 08/30/25 at 0815, 70g x3 days every 5 [...] (monoclonal gammopathy of unknown significance) Rate/Dose Verify 08/30/2025 10:46 AM EDT 480 mL/hr immune globul G-gly-IgA avg 46 (GAMUNEX-C) 10 % 20 g 20 g, Intravenous, at 25-750 mL/hr, ONCE, 1 dose, On Celia 08/30/25 at 0815, 70g x3 days every 5 weeks starting 07/25/25 for CIDP:For CIDP: 0-30 minutes= 1.2 mL/kg/hr= 120mL/hr 30-60 minutes= 2.4 mL/kg/hr= 240mL/hr 60-90 minutes= 3.6 mL/kg/hr= 360mL/hr Maximum Rate= 4.8 mL/kg/hr= 480mL/hr, Administer over 2 Hours, Dx: 1. 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),MGUS (monoclonal gammopathy of unknown significance) Rate/Dose Verify 08/30/2025 10:13 AM EDT 480 mL/hr immune globul G-gly-IgA avg 46 (GAMUNEX-C) 10 % 20 g 20 g, Intravenous, at 25-750 mL/hr, ONCE, 1 dose, On [facility] 08/30/25 at 0815, 70g x3 days every 5 [...] (monoclonal gammopathy of unknown significance) Rate/Dose Verify 08/30/2025 9:39 AM EDT 360 mL/hr sodium chloride 0.9 % sterile syringe 10 mL 10 mL, Intravenous, PRN, 6 doses, Starting on Celia 08/30/25 at 0810, Until 09/01/25 at 0416, Line Care, For initial access of Venous Access Device., Dx: 1. CIDP (chronic inflammatory demyelinating polyneuropathy) ([facility]) 2. MGUS (monoclonal gammopathy of unknown significance)Indications: CIDP (chronic inflammatory demyelinating polyneuropathy) ([facility]),MGUS (monoclonal gammopathy of unknown significance) Given 08/30/2025 8:27 AM EDT 10 mL sodium chloride 0.9% syringe 10 mL 10 mL, Intravenous, PRN, 6 doses, Starting on Celia 08/30/25 at 0810, Until 09/01/25 at 0416, Line Care, For Venous Access Device care and maintenance., Dx: 1. CIDP (chronic inflammatory demyelinating polyneuropathy) ([facility]) 2. MGUS (monoclonal gammopathy of unknown significance)Indications: CIDP (chronic inflammatory demyelinating polyneuropathy) ([facility]),MGUS (monoclonal gammopathy of unknown significance) Given 08/30/2025 11:10 AM EDT 20 mL documented in this encounter Orders Medications Ordered That Kevin ht Not Have Been Administered Count Last Ordered Date First Ordered Date acetaminophen (TYLENOL) tablet 650 mg 1 12/2024 diphenhydrAMINE (BENADRYL) tablet 25 mg 1 1 documented in this encounter Care Teams Hog Handler Relationship Specialty Start Date End Date Becca Dumont APRN [facility] [place] [address] [place] [address] PCP - General Nurse Practitioner 05/05/17 Reva Jacob MD [address] [place] [address] [place] [address] Medical Oncologist Internal Medicine-Hematology and Oncology 07/14/21 documented as of this encounter
[2025-09-19 15:09] LABS: Hematocrit 42.2 % (42.0-52.0); Hemoglobin 13.9 g/dL (14.1-18.0); Immature Granulocytes % 0.5 %; Mean Corpuscular HGB Conc 32.9 g/dL (31.8-35.4); Mean Corpuscular Hemoglobin 31.2 pg (27.0-31.2); Mean Corpuscular Volume 94.8 fl (80-94); Nucleated Red Blood Cells % 0 %; Platelet Count 113 K/mm3 (142-424); Red Blood Count 4.45 M/mm3 (4.60-6.20); Red Cell Distribution Width-SD 45.2 fL; White Blood Count 6.0 K/mm3 (4.8-10.8)
[2025-09-19 15:44] LABS: Hemoglobin A1C 5.8 % (4.0-6.0)
[2025-09-19 15:56] LABS: Alanine Aminotransferase 69 U/L (12-78); Albumin Level 4.1 g/dl (3.5-5.0); Albumin/Globulin Ratio 1.2 (1.1-1.8); Anion Gap 15.5 mEq/L (5-15); Aspartate Amino Transferase 54 U/L (17-59); Bilirubin,Total 0.8 mg/dl (0.2-1.3); Blood Urea Nitrogen 13 mg/dl (9-20); Calcium 9.8 mg/dl (8.4-10.2); Carbon Dioxide 29 mmol/L (22.0-30.0); Chloride 98 mmol/L (98-107); Cholesterol 204 mg/dl (140-200); Creatinine,Serum 0.90 mg/dl (0.66-1.25); Estimated Glomerular Filt Rate 84 ml/min (>60); GFR (African American) 102 ML/MIN (>60); Globulin 3.5 g/dL (1.3-3.2); Glucose 137 mg/dl (74-100); HDL Cholesterol 105 mg/dl (40-60); Potassium 4.5 mmoL/L (3.5-5.1); Sodium 138 mmol/L (136-145); Total Protein,Serum 7.6 g/dl (6.3-8.2); Triglycerides 75 mg/dl (30-150)
[2025-09-19 15:57] LABS: Alkaline Phosphatase 80 U/L (38-126)
[2025-09-19 16:06] LABS: 25-OH Vitamin D, Total 41.0 ng/mL (30-100)
[2025-09-19 16:29] LABS: Thyroid Stimulating Hormone 1.47 uIU/mL (0.465-4.68)
[2025-09-19 16:48] LABS: Vitamin B12 653 pg/mL (239-931)
--- OUTSIDE RECORDS SUMMARY | 2025-09-20 12:44 | XMS_ITS | Encounter Summary ---
Author Organization [place] [address] Care Team Providers Care High School Tutor Name Role Phone Dakota Baez Primary Care Provider [phone] Mike Morse MD Primary Care Provider [phone] Becca Dumont APRN Primary Care Provider [phone] Reva Jacob MD Unavailable [phone] Encounter Details Date Type Department Care Team (Late st Contact Info) Description 01/06/2016 Orders Only SEP Gastro [facility] [address] [facility] [address] [place] [address] Dario Pascal MD Social History Tobacco Use Types Packs/Day Years Used Date Smoking Tobacco: Former Alcohol Use Standard Drinks/Week Comments Yes 0 (1 standard drink = 0.6 oz pur e alcohol) 5-6 times a weeks-liquor Sex and Gender Information Value Date Recorded Sex Assigned at Not on file Legal Sex Male 10:57 PM EDT Gender Identity Not on file Sexual Orientation Not on file documented as of this encounter Plan of Treatment Upcoming Encounters Date Type Department Care Team (Late st Contact Info) Description 09/25/2025 9:50 AM EDT Office Visit SEP Neurology [facility] [address] [place] [address] Brien Hogan MD [address] [place] [address] 10/02/2025 9:00 AM EST Appointment [place] [address] [place] [address] 10/02/2025 9:30 AM EST Appointment [place] [address] [place] [address] OlympiaKym, PROJECTOR BOOTH OPERATOR 1 [facility] [place] [id number] 10/03/2025 8:30 AM EST Appointment [place] [address] [place] [address] 10/04/2025 8:30 AM EST Appointment [facility] [place] [address] documented as of this encounter Procedures Procedure Name Priority Date/Time Associated Diagnosis Comments GMED COLONOSCOPY Routine 01/06/2016 1:15 PM EST documented in this encounter Results * GMED COLONOSCOPY (01/06/2016 1:15 PM EST) 01/06/2016 1:15 PM EST Impressions [facility] - 01/06/2016 2:05 PM EST Polyp (12 mm) in the distal sigmoid colon and proximal rectum. (Polypectomy). Otherwise normal colonoscopy. Plan: Colonoscopy in 3-5 years depending on pathology results. This section is an excerpt of the full report. us Dario Pascal MD GI PROCEDURE ORDERABLES Lena l Result [facility] 1 [place] [address] documented in this encounter Visit Diagnoses Not on filedocumented in this encounter Care Teams High School Tutor Relationship Specialty Start Date End Date Dakota Baez [address] [place], [place] [address] [place] [address] PCP - General 11/14/10 04/16/16 Mike Morse MD [address] [place] [address] [address] [place] [address] PCP - General Family Medicine 04/17/16 05/04/17 Becca Dumont APRN [address] [facility] [address] [place] [address] PCP - General Nurse Practitioner 05/05/17 Reva Jacob MD [address] [place] [address] Medical Oncologist Internal Medicine-Hematology and Oncology 07/14/21 documented as of this encounter
--- OUTSIDE RECORDS SUMMARY | 2025-09-20 12:46 | XMS_ITS | Encounter Summary ---
Author Organization [place] [address] Care Team Providers Care Percher Name Role Phone Becca Dumont APRN Primary Care Provider [phone] Reva Jacob MD Unavailable [phone] Encounter Details Date Type Department Care Team (Late st Contact Info) Description 05/17/2025 Orders Only [facility]G LABORATORY One [facility] [place] [address] Andreea Morataya MD 1 [place] [address] Social History Tobacco Use Types Packs/Day Years [...] 9:50 AM EDT Office Visit SEP Neurology [facility] [address] [place] [address] Brien Hogan MD [address] [place] [address] 10/02/2025 9:00 AM EST Appointment [place] [address] [place] [address] 10/02/2025 9:30 AM EST Appointment [place] [address] [place] [address] Kym Bell, NEW CAR MAKE READY MECHANIC [address] [facility] [place] [address] 10/03/2025 8:30 AM EST Appointment [place] [address] [place] [address] 10/04/2025 8:30 AM EST Appointment [place] [address] [place] [address] documented as of this encounter Procedures Procedure Name Priority Date/Time Associated Diagnosis Comments NEOGENOMICS ONCOLOGY CHROMOSOME ANALYSIS Routine 05/17/2025 11:29 AM EDT documented in this encounter Results * NEOGENOMICS ONCOLOGY CHROMOSOME ANALYSIS (05/17/2025 11:29 AM EDT) 05/17/2025 11:2 9 AM EDT Narrative [facility] - 05/26/2025 12:54 PM EDT Requesting Provider: SUNIL Ellis Specimen = [id number] Andreea Morataya MD PATHOLOGY ORDERABLES Final Resul t [facility] 1 [place] [address] documented in this encounter Visit Diagnoses Not on filedocumented in this encounter Care Teams Percher Relationship Specialty Start Date End Date Becca Dumont, NEW CAR MAKE READY MECHANIC [address] [facility] [address] [facility] [place] [address] PCP - General Nurse Practitioner 05/05/17 Reva Jacob MD [address] [facility] [place] [address] Medical Oncologist Internal Medicine-Hematology and Oncology 07/14/21 documented as of this encounter
--- OUTSIDE RECORDS SUMMARY | 2025-09-20 12:46 | XMS_ITS | Encounter Summary ---
Author Organization [place] [address] Care Team Providers Care Screwhead Polisher Name Role Phone Becca Dumont APRN Primary Care Provider [phone] Reva Jacob MD Unavailable [phone] Encounter Details Date Type Department Care Team (Late st Contact Info) Description 05/17/2025 Orders Only EDG LABORATORY One [facility] [place] [address] Andreea Morataya MD 1 [place] [address] Social History Tobacco Use Types Packs/Day Years [...] Visit SEP Neurology [facility] [address] [place] [address] Brien Hogan MD [address] [place] [address] 10/02/2025 9:00 AM EST Appointment [place] [address] [place] [address] 10/02/2025 9:30 AM EST Appointment [place] [address] [place] [address] Kym Bell APRN [address] [facility] [address] [place] [id number] 10/03/2025 8:30 AM EST Appointment [place] [address] [place] [address] 10/04/2025 8:30 AM EST Appointment [place] [address] [place] [address] documented as of this encounter Procedures Procedure Name Priority Date/Time Associated Diagnosis Comments NEOGENOMICS PLASMA CELL MYELOMA PROGNOSTIC PANEL Routine 05/17/2025 11:29 AM EDT documented in this encounter Results * NEOGENOMICS PLASMA CELL MYELOMA PROGNOSTIC PANEL (05/17/2025 11:29 AM EDT) 05/17/2025 11:2 9 AM EDT Narrative [facility] - 05/23/2025 8:47 PM EDT Requesting Provider: SUNIL Ellis Specimen = [id number] Andreea Morataya MD PATHOLOGY ORDERABLES Final Resul t [facility] 1 [place] [address] documented in this encounter Visit Diagnoses Not on filedocumented in this encounter Care Teams Screwhead Polisher Relationship Specialty Start Date End Date Becca Dumont APRN 12[address] [facility] [address] [place] [address] PCP - General Nurse Practitioner 05/05/17 Reva Jacob MD [address] [facility] [place] [address] Medical Oncologist Internal Medicine-Hematology and Oncology 07/14/21 documented as of this encounter
--- OUTSIDE RECORDS SUMMARY | 2025-09-20 12:46 | XMS_ITS | Encounter Summary ---
Author Organization [place] [address] Care Team Providers Care Clerk Television Production Name Role Phone Becca Dumont APRN Primary Care Provider Reva Jacob MD Unavailable [phone] Reason for Visit * Reason Onset Date Comments Orders 07/24/2025 Change in IVIG o rders to q 5 weeks Encounter Details Date Type Department Care Team (Late st Contact Info) Description 07/24/2025 Telephone SEP Neurology [facility] [address] [place] [address] Brien Hogan MD [address] [facility] 100 [place] [address] Orders (Change in IVIG orders to q 5 weeks) Social History Tobacco Use Types Packs/Day Years [...] on file documented as of this encounter Miscellaneous Notes * Telephone Encounter - Lavell Pat PharmD - 07/25/2025 7:47 AM EDT Updated to Q5W. Thanks! Adan * Telephone Encounter - Brien Hogan MD - 07/24/2025 9:11 AM EDT He is currently getting Gamunex 2g/kg q4wks @ [facility]. He is scheduled to start another cycle tomorrow. After this cycle is complete, please space out his IVIG from q4wks to q5wks. documented in this encounter Plan of Treatment Upcoming Encounters Date Type Department Care Team (Late st Contact Info) Description 09/25/2025 9:50 AM EDT Office Visit SEP Neurology [facility] [address] [place] [address] Brien Hogan MD [address] [facility] 100 [place] [address] 10/02/2025 9:00 AM EST Appointment [address] [place] [address] 10/02/2025 9:30 AM EST Appointment [address] [place] [address] Kym Bell, KILN TRANSFER OPERATOR 1 [facility] [place] [address] 10/03/2025 8:30 AM EST Appointment [address] [place] [address] 10/04/2025 8:30 AM EST Appointment [address] [place] [address] documented as of this encounter Visit Diagnoses Not on filedocumented in this encounter Care Teams Clerk Television Production Relationship Specialty Start Date End Date Becca Dumont, KILN TRANSFER OPERATOR [address] [facility] [address] [place] [id number] PCP - General Nurse Practitioner 05/05/17 Reva Jacob MD [address] [facility] [place] [address] Medical Oncologist Internal Medicine-Hematology and Oncology 07/14/21 documented as of this encounter
--- OUTSIDE RECORDS SUMMARY | 2025-09-20 12:46 | XMS_ITS | Encounter Summary ---
Author Organization [place] [address] Care Team Providers Care Energy Director Name Role Phone Becca Dumont APRN Primary Care Provider [phone] Reva Jacob MD Unavailable [phone] Encounter Details Date Type Department Care Team (Late st Contact Info) Description 05/17/2025 Orders Only EDG LABORATORY One [facility] [address] Andreea Morataya MD 1 [place] [address] Social History Tobacco Use Types Packs/Day Years [...] EDT Office Visit SEP Neurology [facility] [address] [place] [address] Brien Hogan MD [address] [place] [address] 10/02/2025 9:00 AM EST Appointment [place] [address] [place] [address] 10/02/2025 9:30 AM EST Appointment [place] [address] [place] [address] Kym Bell, FELLER OPERATOR 1 [facility] [place] [address] 10/03/2025 8:30 AM EST Appointment [place] [address] [place] [address] 10/04/2025 8:30 AM EST Appointment [place] [address] [place] [address] documented as of this encounter Procedures Procedure Name Priority Date/Time Associated Diagnosis Comments NEOGENOMICS PLASMA CELL PANEL Routine 05/17/2025 11:29 AM EDT documented in this encounter Results * NEOGENOMICS PLASMA CELL PANEL (05/17/2025 11:29 AM EDT) 05/17/2025 11:2 9 AM EDT Narrative [facility] - 05/21/2025 8:18 AM EDT Requesting Provider: SUNIL Ellis Specimen = [id number] Andreea Morataya MD PATHOLOGY ORDERABLES Final Resul t [facility] 1 [place] [address] documented in this encounter Visit Diagnoses Not on filedocumented in this encounter Care Teams Energy Director Relationship Specialty Start Date End Date Becca Dumont, FELLER OPERATOR 12[address] [facility] [address] [place] [address] PCP - General Nurse Practitioner 05/05/17 Reva Jacob MD 1 [facility] [place] [address] Medical Oncologist Internal Medicine-Hematology and Oncology 07/14/21 documented as of this encounter
--- OUTSIDE RECORDS SUMMARY | 2025-09-20 12:46 | XMS_ITS | Encounter Summary ---
Author Organization [place] [address] Care Team Providers Care Director Of Clinical Education Name Role Phone Becca Dumont APRN Primary Care Provider [phone] Reva Jacob MD Unavailable [phone] Encounter Details Date Type Department Care Team (Late st Contact Info) Description 05/17/2025 Orders Only EDG LABORATORY One [place] [address] Andreea Morataya MD 1 [place] [address] Social History Tobacco Use Types Packs/Day Years [...] EDT Office Visit SEP Neurology [facility] [address] [place] [address] Brien Hogan MD [address] [place] [address] 10/02/2025 9:00 AM EST Appointment [facility] Cancer [place] [address] [place] [address] 10/02/2025 9:30 AM EST Appointment [place] [address] [place] [address] Kym Bell, KIKO [address] [facility] [address] 10/03/2025 8:30 AM EST Appointment [place] [address] [place] [address] 10/04/2025 8:30 AM EST Appointment [place] [address] [place] [address] documented as of this encounter Procedures Procedure Name Priority Date/Time Associated Diagnosis Comments NEOGENOMICS LOW-GRADE/SMALL B-CELL LYMPHOMA FISH Routine 05/17/2025 11:29 AM EDT documented in this encounter Results * NEOGENOMICS LOW-GRADE/SMALL B-CELL LYMPHOMA FISH (05/17/2025 11:29 AM EDT) 05/17/2025 11:2 9 AM EDT Narrative [facility] - 05/23/2025 8:57 PM EDT Requesting Provider: SUNIL Ellis Specimen = [id number] us Andreea Morataya MD PATHOLOGY ORDERABLES Final Resul t Performing Organization Address City/State/[facility] Co de Phone Number [facility] 1 [place] [address] documented in this encounter Visit Diagnoses Not on filedocumented in this encounter Care Teams Director Of Clinical Education Relationship Specialty Start Date End Date Becca Dumont, CHAR HOUSE SUPERVISOR 1210 [facility] [address] [facility] [address] PCP - General Nurse Practitioner 05/05/17 Reva Jacob MD [address] [facility] [place] [address] Medical Oncologist Internal Medicine-Hematology and Oncology 07/14/21 documented as of this encounter
--- OUTSIDE RECORDS SUMMARY | 2025-09-20 12:46 | XMS_ITS | Encounter Summary ---
Author Organization [place] [address] [place] [address] Care Team Providers Care Animal Nutrition Consultant Name Role Phone Becca Dumont APRN Primary Care Provider [phone] Reva Jacob MD Unavailable [phone] Encounter Details Date Type Department Care Team (Late st Contact Info) Description 05/17/2025 Orders Only [facility] [address] Andreea Morataya MD [address] [place] [address] Social History Tobacco Use Types Packs/Day Years [...] 9:50 AM EDT Office Visit SEP Neurology [facility] [address] [place] [address] Brien Hogan MD [address] [place] [address] 10/02/2025 9:00 AM EST Appointment [facility] [address] [place] [address] 10/02/2025 9:30 AM EST Appointment [facility] [address] [place] [address] Kym Bell, COMMERCIAL CONSTRUCTION PROJECT MANAGER [address] [address] 10/03/2025 8:30 AM EST Appointment [facility] [address] [address] 10/04/2025 8:30 AM EST Appointment [facility] [address] [place] [address] documented as of this encounter Procedures Procedure Name Priority Date/Time Associated Diagnosis Comments NEOGENOMICS MYD88 MUTATION ANALYSIS Routine 05/17/2025 11:29 AM EDT documented in this encounter Results * NEOGENOMICS MYD88 MUTATION ANALYSIS (05/17/2025 11:29 AM EDT) 05/17/2025 11:2 9 AM EDT Narrative [facility] - 05/28/2025 7:41 PM EDT Requesting Provider: SUNIL Ellis Specimen = [id number] Andreea Morataya MD PATHOLOGY ORDERABLES Final Resul t [facility] [address] [place] [address] documented in this encounter Visit Diagnoses Not on filedocumented in this encounter Care Teams Animal Nutrition Consultant Relationship Specialty Start Date End Date Becca Dumont, COMMERCIAL CONSTRUCTION PROJECT MANAGER [address] [facility] [address] [facility] [place] [place] [place] [address] PCP - General Nurse Practitioner 05/05/17 Reva Jacob MD [address] [place] [address] Medical Oncologist Internal Medicine-Hematology and Oncology 07/14/21 documented as of this encounter
--- OUTSIDE RECORDS SUMMARY | 2025-09-20 12:46 | XMS_ITS | Clinical Summary ---
Author Organization [facility] Address [address] [facility] [address] [place] [address] Phone Care Team Providers Care User Support Analyst Supervisor Name Role Phone Les Hutton MD [phone] Conditions or Problems Problem Name Problem Code Onset Date Status Entry Date Provider Comment Standard Description Annotate NECK PAIN 86177521 (SNOMED CT) 08/11 Active 08/11 Brittany Eugene Neck pain CERVICAL SPONDYLOSIS 983364957 (SNOMED CT) 08/11 Active 08/11 Brittany Eugene Cervical spondylosis OTHER SPONDYLOSIS WITH RADICULOPATHY, CERVICAL REGION M47.22 (ICD-10-CM ) Active Jenny Yanez MA Other spondylosis with radiculopath y, cervical region OVERWEIGHT 213082379 (SNOMED CT) Active Jenny Yanez MA Overweight BODY MASS INDEX 28.0-28.9, ADULT 123476784 (SNOMED CT) 04/12 Active 04/12 Jenny Yanez MA Finding of body mass index PERIPHERAL NEUROPATHY 581488352 (SNOMED CT) 01/25 Active 01/25 Ilan Thomas MA Peripheral nerve disease *AFTRCR FOLLOW SRG MUSCULOSKELETAL SYSTEM NEC Z48.89 (ICD-10-CM ) 12/01 Active 12/01 Daren Landa [employer] Encounter for other specified surgical aftercare LUMBAR STENOSIS 94929404 (SNOMED CT) 01/03 Active 01/03 Les Hutton MD Spinal stenosis of lumbar region Medications Medication Instructions Start Date Stop Date Generic Name NDC Provider LISINOPRIL 30 MG TABS lisinopril 81190503742 Brittany Eugene PREDNISONE 5 MG TABS prednisone 65876351800 Brittany Eugene PREDNISONE 20 MG TABS prednisone 79007375671 Brittany Eugene SIMVASTATIN 40 MG TABS simvastatin 26784375389 Brittany Eugene CLINIMIX/DEXTRO SE (04/12) 5 % SOLN [facility] AMINO ACID INFUSION IN D15W 59357295256 Jenny Yanez MA ALLERGY RELIEF 25 MG TABS [facility] DIPHENHYDRAMINE HCL [id number] Les Hutton MD MULTI VITAMIN TABS [facility] MULTIPLE VITAMIN 49658011690 Les uHtton MD ASPIRIN LOW DOSE 81 MG TBEC [facility] ASPIRIN [id number] Les Hutton MD NAPROXEN 500 MG TABS [facility] NAPROXEN [id number] Les Hutton MD LISINOPRIL 20 MG TABS [facility] LISINOPRIL [phone] Les Hutton MD SIMVASTATIN 40 MG TABS [facility] SIMVASTATIN [phone] Les Hutton MD Medications Administered No information available. Allergies, Adverse Reactions, Alerts Observed no known allergies at Results No information available. Plan of Care Type Date Detail Referral Neurology Consul t Pending order Medial Branch Bl ock (MBB) Pending order Facet Injections Pending order X-Ray Cervical A P & Lateral Pending order X-Ray Cervical F lexion/Extension Pending order EMG Bilateral Lo wers Pending order EMG Bilateral Lo wers Pending order X-Ray Other Patient education weight%20manag ement Patient education weight%20manag ement Patient education lumbar%20spina l%20stenosis Procedures Code Procedure Name Date Entry Date [facility]-[id number] Flu Shot Previously Received [facility]-[id number] Medications Documented 09307 EMG w/ NCS, Complete, 1 Extremity CPT-265 28 1625/05/15 G8427 Medication Reconcili ation Completed CPT-G8427 G8730 Pain Assessment posi tive with follow up plan G8417 BMI above normal, f/u plan documented 201 06/02/15 1036F No tobacco use currently 201 06/02/15 4040F Pneumococcal vaccine received G8482 Flu shot received 1124F No ACP/POA documented but discussed 04/12 46969 Nerve Conduction Phong dy (9-10 studies) CPT-72667 74290 EMG w/ NCS, Complete, 1 Extremity CPT-722 35 9953/02/27 74098 Nerve Conduction Phong dy (5-6 studies) CPT-98769 [id number] Flu Shot Previously Received [facility]CT-[id number] Medications Documented 1124F No ACP/POA documented but discussed 11/02 G8483 No flu shot received; allergy etc. 01/03 8910J9T No pneumococcal vaccine received; no reas on 1036F No tobacco use currently 201 05/10/05 G8417 BMI above normal, f/u plan documented 201 05/10/05 G8730 Pain Assessment posi tive with follow up plan G8427 Medication Reconcili ation Completed CPT-G8427 [facility]-[id number] Medications Documented Vital Signs Date Name Value Unit Description BMI (Body Mass Index) 31.28 kg/m2 Bod y Mass Index (Ratio) Height 70 [in_us] height E&M Weight Measured 218 [lb_av] weight E& M Weight Measured 218 [lb_av] weight E& M BP Diastolic 90 mm[Hg] blood pressu re, diastolic BP Systolic 177 mm[Hg] blood pressur e, systolic Heart Rate 82 /min pulse rate Immunizations No information available. Advance Directives No information available.
--- OUTSIDE RECORDS SUMMARY | 2025-09-20 12:47 | XMS_ITS | Clinical Summary ---
Author Organization [facility] Address [address] [facility] [address] [place] [address] Phone Care Team Providers Care Service Greeter Name Role Phone Becca Dumont APRN Primary Care Provider [phone] Reva Jacob MD Unavailable [phone] Allergies No known active allergies Medications diphenhydrAMINE (BENADRYL) 25 mg Oral Capsule Take 25 mg by mouth every 6 hours as needed for Itching. Active multivitamin (THERAGRAN) Oral Tablet Take by mouth daily. Active aspirin 81 mg Oral Tablet, Chewable Take 81 mg by mouth daily. Active Coenzyme Q10 100 mg Oral Capsule Take by mouth. Active Cholecalciferol, Vitamin D3, 2,000 unit Oral Capsule Take 2,000 Units by mouth daily. Active EPINEPHrine (EPIPEN) 0.3 mg/0.3 mL Inj Auto-Injector Inject 0.3 mL into the muscle as needed for Anaphylaxis. 1 Each 07/22/20 18 Active immune globulin (human) Inject into the vein Every 6 weeks. Active UNABLE TO FIND Take 1,000 mg by mouth. Med Name: calcium Active hydroCHLOROthiazide (HYDRODIURIL) 25 mg Oral Tablet 09/08/20 22 Active lisinopriL (PRINIVIL;ZESTRIL) 40 mg Oral Tablet Take 40 mg by mouth daily. 09/09/20 22 Active metFORMIN (GLUCOPHAGE XR) 500 mg Oral ER 24 hr tablet Take 500 mg by mouth daily (with breakfast). 03/22/20 25 Active atorvastatin (LIPITOR) 40 mg Oral Tablet Take 40 mg by mouth daily. Active zanubrutinib 80 mg Oral CapsuleIndications:Wa ldenstrom's macroglobulinemia (HCC) Take 2 Capsules by mouth 2 times daily. 120 Capsule 5 07/09/20 Active zanubrutinib (BRUKINSA) 80 mg Oral Capsule Take by mouth. Active zanubrutinib (BRUKINSA) 80 mg Oral Capsule Take by mouth. Active predniSONE (DELTASONE) 5 mg Oral Tablet Take 3 Tablets by mouth daily. 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 [address] CIDP (chronic inflammatory demyelinating polyneuropathy) (HCC) (Primary Dx); MGUS (monoclonal gammopathy of unknown significance) Discharge Disposition: Home or Self Care 08/28/2025 7:49 AM EDT - 08/28/2025 11:59 PM EDT Hospital Encounter [address] [place] [address] Kym Bell, KIKO Waldenstrom's macroglobulinemia (Primary Dx); Encounter for long-term current use of high risk medication; CIDP (chronic inflammatory demyelinating polyneuropathy) (HCC) Discharge Disposition: Home or Self Care 08/28/2025 7:49 AM EDT - 08/28/2025 11:59 PM EDT Hospital Encounter [address] [place] [address] CIDP (chronic inflammatory demyelinating polyneuropathy) (HCC) (Primary Dx); MGUS (monoclonal gammopathy of unknown significance); Waldenstrom's macroglobulinemia; Encounter for long-term current use of high risk medication Discharge Disposition: Home or Self Care 07/31/2025 9:00 AM EDT - 07/31/2025 11:59 PM EDT Hospital Encounter [address] [place] [address] Arabella, Kym Spaulding, KIKO Waldenstrom's macroglobulinemia (Primary Dx); Encounter for long-term current use of high risk medication; CIDP (chronic inflammatory demyelinating polyneuropathy) (HCC) Discharge Disposition: Home or Self Care 07/31/2025 8:30 AM EDT - 07/31/2025 8:59 AM EDT Hospital Encounter [address] [place] [address] MGUS (monoclonal gammopathy of unknown significance) (Primary Dx); Waldenstrom's macroglobulinemia; CIDP (chronic inflammatory demyelinating polyneuropathy) (HCC) Discharge Disposition: Home or Self Care 07/27/2025 7:45 AM EDT - 07/27/2025 11:59 PM EDT Hospital Encounter [address] [place] [address] CIDP (chronic inflammatory demyelinating polyneuropathy) (HCC) (Primary Dx); MGUS (monoclonal gammopathy of unknown significance) Discharge Disposition: Home or Self Care 07/26/2025 7:46 AM EDT - 07/26/2025 11:59 PM EDT Hospital Encounter [address] [place] [address] CIDP (chronic inflammatory demyelinating polyneuropathy) (HCC) (Primary Dx); MGUS (monoclonal gammopathy of unknown significance) Discharge Disposition: Home or Self Care 07/25/2025 7:50 AM EDT - 07/25/2025 11:59 PM EDT Hospital Encounter [address] 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 [address] Reva Jacob MD Waldenstrom's macroglobulinemia (Primary Dx); CIDP (chronic inflammatory demyelinating polyneuropathy) (HCC); Encounter for long-term current use of high risk medication Discharge Disposition: Home or Self Care 07/02/2025 7:51 AM EDT - 07/02/2025 11:59 PM EDT Hospital Encounter [address] [place] [address] CIDP (chronic inflammatory demyelinating polyneuropathy) (HCC) (Primary Dx); MGUS (monoclonal gammopathy of unknown significance) Discharge Disposition: Home or Self Care 06/29/2025 Specialty Pharmacy [facility] [address] [place] [address] Radha Velasco, [facility] Pharmacy Oncology Management; Pharmacy Reassessment (zanabrutinib) 06/28/2025 7:49 AM EDT - 06/28/2025 11:59 PM EDT Hospital Encounter [address] [place] [address] CIDP (chronic inflammatory demyelinating polyneuropathy) (HCC) (Primary Dx); MGUS (monoclonal gammopathy of unknown significance) Discharge Disposition: Home or Self Care 06/27/2025 8:13 AM EDT - 06/27/2025 11:59 PM EDT Hospital Encounter [address] [place] [address] CIDP (chronic inflammatory demyelinating polyneuropathy) (HCC) (Primary Dx); MGUS (monoclonal gammopathy of unknown significance) Discharge Disposition: Home or Self Care 06/26/2025 8:07 AM EDT - 06/26/2025 11:59 PM EDT Hospital Encounter [address] [place] [address] CIDP (chronic inflammatory demyelinating polyneuropathy) (HCC) (Primary Dx); MGUS (monoclonal gammopathy of unknown significance) Discharge Disposition: Home or Self Care from Last 3 Months Immunizations Immunization Administration Dates Next Due Influenza Vaccine Quadrivalent PF 11/15/2016 Surgical History Surgery Date Site/Laterality Comments SHOULDER SURGERY HAND SURGERY VASECTOMY COLONOSCOPY LUMBAR DISC SURGERY 11/13/2016 Spine Lumbar/Bilatera l LUMBAR LAMINECTOMY BILATERAL MESIAL FASCIECTOMY L4/5; Surgeon: Les Hutton MD; Location: [facility]; Service: Neurosurgery BACK SURGERY Lumbar surgery IR ULTRASOUND GUIDED VASCULAR ACCESS 08/16/2019 IR ULTRASOUND GUIDED VASCULAR ACCESS 08/16/2019 Wilbert Dixon MD [facility] IR PORT PLACEMENT EQUAL OR > 5 YEARS 08/16/2019 IR PORT PLACEMENT EQUAL OR > 5 YEARS 08/16/2019 Wilbert Dixon MD [facility] IR ANKLE FRACTURE SURGERY 02/27/2020 Right RIGHT ANKLE OPEN REDUCTION INTERNAL FIXATION MEDIAL MALLEOLUS FRACTURE; Surgeon: Inderjit Hollingsworth MD; [facility]; Service: Orthopedics Medical devices from this surgery are in the Medical Devices section. Medical History Medical History Date Comments Hypercholesterolemia Hypertension Arthritis Spinal stenosis Family History Medical History Relation Name Comments Cancer Father Relation Name Status Comments Father Social History Tobacco Use Types Packs/Day Years [...] on file Sexual Orientation Not on file Last Filed Vital Signs Vital Sign Reading [...] 12.8 oz) 08/30/2025 8:17 AM EDT Height 180.3 cm (5' 11 ) 08/28/2025 8:12 AM EDT Body Mass Index 30.93 08/28/2025 8:12 AM EDT Plan of Treatment Upcoming Encounters Date Type Department Care Team (Late st Contact Info) Description 09/25/2025 9:50 AM EDT Office Visit SE[facility] Neurology [facility] [address] [place] [address] Brien Hogan MD [address] [place] [address] 10/02/2025 9:00 AM EST Appointment [address] [place] [address] 10/02/2025 9:30 AM EST Appointment [address] [place] [address] Kym Bell, KIKO [address] [place] [address] 10/03/2025 8:30 AM EST Appointment [facility] [address] [place] [address] 10/04/2025 8:30 AM EST Appointment [facility] [place] [address] [address] [place] [address] Health Maintenance Due Date Last Done Comments Wellness Exam Medicare 1958 Cologuard 2002 FIT 2002 Sigmoidoscopy 2002 Virtual Colonography 2002 COVID-19 Vaccine ( season) 2025 09/21/2024, 10/26/2022, 08/05/2021, Additional history exists Influenza Vaccine (#1) 2025 , 08/10/2022, 09/19/2018, Additional history exists Colon Cancer Screening 01/06/2026 Colonoscopy 01/06/2026 01/06/2016, 01/05/2011 DTaP/TDaP/Td (2 - Td or Tdap) 12/28/2028 12/28/2018 Hepatitis C Screening Completed 07/02/2017 Zoster Completed 11/12/2019, 01/30/2019 AAA Screening Completed 07/23/2022 Pneumococcal Vaccine 50+ Completed 08/10/2022, 01/2022 Hepatitis B Vaccine Aged Out No longe r eligible based on patient's age to complete this topic Meningococcal B Vaccine Aged Out No l onger eligible based on patient's age to complete this topic Medical Devices Implanted Type Area Concrete Finisher Apprentice Device Identifier Shelf Expiration Date Model / Serial / Lot Port Power Xcela Standard Titanium 8fr-08/16/2019 Implanted:Qty: 1 on 08/16/2019 by Wilbert Dixon MD [facility] [id number] Screw Headless Compression 04.0mm / L46mm - [id number] Implanted:Qty: 2 on 02/27/2020 by Inderjit Hollingsworth MD at [facility] Right: Ankle MIC:ORTHOPED ICS [id number] / / Procedures Procedure Name Priority Date/Time Associated Diagnosis Comments LACTATE DEHYDROGENASE KARLA 08/28/2025 8:20 AM EDT Waldenstrom's macroglobulinemia Encounter for long-term current use of high risk medication COMPREHENSIVE METABOLIC PANEL KARLA 08/28/2025 8:20 AM EDT Waldenstrom's macroglobulinemia Encounter for long-term current use of high risk medication CBC WITH DIFF KARLA 08/28/2025 8:20 AM EDT Waldenstrom's macroglobulinemia Encounter for long-term current use of high risk medication COMPREHENSIVE METABOLIC PANEL STAT 07/31/2025 9:13 AM EDT MGUS (monoclonal gammopathy of unknown significance) Waldenstrom's macroglobulinemia CBC WITH DIFF STAT 07/31/2025 9:13 AM EDT MGUS (monoclonal gammopathy of unknown significance) Waldenstrom's macroglobulinemia COMPREHENSIVE METABOLIC PANEL STAT 07/02/2025 8:15 AM EDT MGUS (monoclonal gammopathy of unknown significance) Waldenstrom's macroglobulinemia CBC WITH DIFF STAT 07/02/2025 8:15 AM EDT MGUS (monoclonal gammopathy of unknown significance) Waldenstrom's macroglobulinemia [facility] AAA SCREENING EXAM MEDICARE Routine 07/23/2022 9:00 AM EDT Screening for ischemic heart disease ACUTE HEPATITIS PANEL Routine 07/02/2017 11:35 AM EDT Chronic inflammatory demyelinating polyneuritis (HCC) GMED COLONOSCOPY Routine 01/06/2016 1:15 PM EST from Last 3 Months or Most Recently Relevant to Health Maintenance Results * (ABNORMAL) CBC WITH DIFF (08/28/2025 8:20 AM EDT) Only the most recent of3 resultswithin the time period is included. WBC 6.5 3.7 - 10.3 x10(3)/mc L 08/28/2025 8:26 AM [facility] RBC 4.22(L) 4.60 - 6.10 x10(6)/mc L 08/28/2025 8:26 AM [facility] Hgb 13.1(L) 13.7 - 17.5 g/dL 08/28/2025 8:26 AM [facility] Hct 40.2 40.0 - 51.0 % 08/28/2025 8:26 AM [facility] MCV 95.3 80.0 - 100.0 fL 08/28/2025 8:26 AM [facility] MCH 31.0 26.0 - 34.0 pg 08/28/2025 8:26 AM [facility] MCHC 32.6 30.7 - 35.5 g/dL 08/28/2025 8:26 AM [facility] RDW 13.0 <=14.9 % 08/28/2025 8:26 AM [facility] Platelet 221 155 - 369 x10(3)/mc L 08/28/2025 8:26 AM [facility] MPV 10.1 8.8 - 12.5 fL 08/28/2025 8:26 AM [facility] Neut # Prelim 5.1 1.6 - 6.1 x10(3)/mc L 08/28/2025 8:26 AM [facility] Comment:Preliminary automate d absolute neutrophil count. Value may change if manual differential is indicated. Neut Percent 78.5 % 08/28/2025 8:26 AM [facility] Comment:Neutrophils equals s egs plus bands Imm Gran% 0.2 % 08/28/2025 8:26 AM [facility] Comment:Automated count of m etamyelocytes, myelocytes and promyelocytes. Lymph Percent 11.9 % 08/28/2025 8:26 AM [facility] Mcculloch Percent 7.7 % 08/28/2025 8:26 AM [facility] Eos Percent 1.1 % 08/28/2025 8:26 AM [facility] Baso Percent 0.6 % 08/28/2025 8:26 AM EDT [facility] Neut # 5.1 1.6 - 6.1 x10(3)/ L 08/28/2025 8:26 AM EDT [facility] Comment:Neutrophils equals s egs plus bands IMMGRAN# 0.0 0.0 - 0.1 x10(3)/mc L 08/28/2025 8:26 AM EDT [facility] Comment:Automated count of m etamyelocytes, myelocytes and promyelocytes. An absolute IG <0.1 is reported as 0.0. Lymph # 0.8(L) 1.2 - 3.9 x10(3)/ L 08/28/2025 8:26 AM EDT [facility] Mcculloch # 0.5 0.3 - 0.9 x10(3)/ L 08/28/2025 8:26 AM EDT [facility] Eos# 0.1 0.0 - 0.5 x10(3)/ L 08/28/2025 8:26 AM EDT [facility] Baso # 0.0 0.0 - 0.1 x10(3)/ L 08/28/2025 8:26 AM EDT [facility] Blood VENOUS STRUCTURE / Unknown Port / Unknown 08/28/2025 8:20 AM EDT 08/28/2025 8:22 AM EDT us Kym Bell APRN HEMATOLOGY ORDERABLES Fi nal Result [facility] [address] [place] [address] * LACTATE DEHYDROGENASE (08/28/2025 8:20 AM EDT) LDH 211 135 - 225 U/L 08/28/2025 8:41 AM EDT [facility] Blood VENOUS STRUCTURE / Unknown Port / Unknown 08/28/2025 8:20 AM EDT 08/28/2025 8:22 AM EDT us Kym Chelly Ashby SUPERINTENDENT PRESSURE CHEMISTRY ORDERABLES Fin al Result [facility] [address] [place] [address] * (ABNORMAL) COMPREHENSIVE METABOLIC PANEL (08/28/2025 8:20 AM EDT) Only the most recent of3 resultswithin the time period is included. Sodium 137 136 - 145 mmol/L 08/28/2025 8:41 AM EDT [facility] Potassium 3.8 3.5 - 5.0 mmol/L 08/28/2025 8:41 AM EDT [facility] Chloride 100 98 - 107 mmol/L 08/28/2025 8:41 AM EDT [facility] Total CO2 28 22 - 29 mmol/L 08/28/2025 8:41 AM T [facility] Anion Gap 9 7 - 16 mmol/L 08/28/2025 8:41 AM EDT [facility] Calcium 9.3 8.8 - 10.4 mg/dL 08/28/2025 8:41 AM EDT [facility] Glucose Lvl 114(H) 70 - 99 mg/dL 08/28/2025 8:41 AM EDT [facility] BUN 16 8 - 23 mg/dL 08/28/2025 8:41 AM EDT [facility] Creatinine 0.88 0.67 - 1.30 mg/dL 08/28[facility]2025 8:[facility] Albumin 3.9 3.2 - 4.6 gm/dL 08/28/2025 8:41 AM EDT [facility] Total Protein 7.2 6.4 - 8.3 gm/dL 08/28/2025 8:41 AM EDT [facility] Bili Total 0.5 0.2 - 1.4 mg/dL 08/28/2025 8:41 AM EDT [facility] ALT 45(H) <=41 U/L 08/28/2025 8:41 AM EDT [facility] AST 36 <=40 U/L 08/28/2025 8:41 [facility] Alk Phos 52 40 - 129 U/L 08/28/2025 8:41 AM EDT [facility] eGFR (CKD-EPIcr 2020) 94 >=60 mL/min/1.7 3 m2 08/28/2025 8:41 AM EDT [facility] Comment:Estimated GFR was ca lculated using the CKD-EPIcr (2020) equation refit without race. The equation is recommended by the National Kidney Foundation - [place] [employer] of Nephrology Task Force. Blood VENOUS STRUCTURE / Unknown Port / Unknown 08/28/2025 8:20 AM EDT 08/28/2025 8:22 AM EDT Kym Bell SUPERINTENDENT PRESSURE CHEMISTRY ORDERABLES Fin al Result [facility] [address] [place] [address] * [facility] AAA SCREENING EXAM MEDICARE (07/23/2022 9:00 AM EDT) Anatomical Region Laterality Modality Abdomen Electrocardiogra phy 07/23/2022 8:25 AM EDT Impressions 07/23/2022 4:42 PM EDT Conclusions * No evidence of an AAA of the visualized segments of the aorta. Normal aorta velocities. There is mild plaque noted throughout the aorta. Elevated velocities of the Celiac artery, 403 cm/s and the SMA, 323 cm/s. Narrative Procedure Note Justice Grey, DO - 07/23/2022 IMPRESSION Conclusions * No evidence of an AAA of the visualized segments of the aorta.Normal aorta velocities. There is mild plaque noted throughout the aorta.Elevated velocities of the Celiac artery, 403 cm/s and the SMA, 323 cm/s. Becca Dumont SUPERINTENDENT PRESSURE IMG VASCULAR ORDERABLES Final Result * ACUTE HEPATITIS PANEL (07/02/2017 11:35 AM EDT) Hep Bs Ag Negative Negative [facility] Hep B Core IgM Negative Negative [facility] Hep A IgM Negative Negative [facility] Hep C Ab Negative Negative [facility] Blood specimen (specimen) UPPER LIMB STRUCTURE / Unknown 07/02/2017 11:35 AM EDT 07/02/2017 2:34 PM EDT us Lynne Ma DO CHEMISTRY ORDERABLES Edite d Result - Final Performing Organization Address [facility]/ZIP Co de Phone Number [facility] [address] [place] [address] * GMED COLONOSCOPY (01/06/2016 1:15 PM EST) 01/06/2016 1:15 PM EST Impressions [facility] - 01/06/2016 2:05 PM EST Polyp (12 mm) in the distal sigmoid colon and proximal rectum. (Polypectomy). Otherwise normal colonoscopy. Plan: Colonoscopy in 3-5 years depending on pathology results. This section is an excerpt of the full report. us Dario Pascal MD GI PROCEDURE ORDERABLES Lena l Result Performing Organization Address [facility] Co de Phone Number [facility] [address] [place] [address] from Last 3 Months or Most Recently Relevant to Health Maintenance Insurance MEDICARE [place] PART A AND B Member Subscriber Plan / Payer (Ef fective 2019-Present) Name:Gael Simon Member ID:[id number] Relation to Subscriber:Self Name:Gael Simon Subscriber ID:[id number] Payer ID:Not on file Group ID:Not on file Type:Not on file Address: [address] [email or web address] MEDICARE [place] PART A AND B [employer] Signature Advance Directives For more information, please contact: [phone] * Full Code (Latest Code Status on File) Date Activated Date Inactivated Comments 11/13/2016 4:20 PM 11/16/2016 4:18 PM Care Teams Service Greeter Relationship Specialty Start Date End Date Becca Dumont APRN [address] [facility] [address] [place] [address] PCP - General Nurse Practitioner 05/05/17 Reva Jacob MD [address] [place] [address] [address] [place], [place] [id number] Medical Oncologist Internal Medicine-Hematology and Oncology 07/14/21
--- OUTSIDE RECORDS SUMMARY | 2025-09-20 12:47 | XMS_ITS | Encounter Summary ---
Author Organization [place] [address] Care Team Providers Care Director Process Improvement Name Role Phone Becca Dumont APRN Primary Care Provider [phone] Reva Jacob MD Unavailable [phone] Encounter Details Date Type Department Care Team (Late st Contact Info) Description 09/04/2024 Orders Only SEP Neurology [facility] [address] [place] [address] Brien Hogan MD [address] [place] [address] Social History Tobacco Use Types Packs/Day Years [...] 9:50 AM EDT Office Visit SEP Neurology [facility] [address] [place] [address] Brien Hogan MD [address] [place] [address] 10/02/2025 9:00 AM EST Appointment [place] [address] [place] [address] 10/02/2025 9:30 AM EST Appointment [address] [place] [address] Kym Bell APRN [address] [facility] [facility] [address] [place] [id number] 10/03/2025 8:30 AM EST Appointment [address] [place] [address] 10/04/2025 8:30 AM EST Appointment [address] [place] [address] documented as of this encounter Visit Diagnoses Not on filedocumented in this encounter Care Teams Director Process Improvement Relationship Specialty Start Date End Date Becca Dumont APRN [address] [facility] [address] [place] [phone] PCP - General Nurse Practitioner 05/05/17 Reva Jacob MD [address] [facility] [address] [place] [id number] Medical Oncologist Internal Medicine-Hematology and Oncology 07/14/21 documented as of this encounter
--- OUTSIDE RECORDS SUMMARY | 2025-09-20 12:47 | XMS_ITS | Encounter Summary ---
Author Organization [place] [address] Care Team Providers Care Credit Collection Associate Name Role Phone Becca Dumont APRN Primary Care Provider [phone] Reva Jacob MD Unavailable Encounter Details Date Type Department Care Team (Late st Contact Info) Description 09/01/2024 Orders Only SEP Neurology [facility] [address] [place] [address] Brien Hogan MD [address] [place] [address] Social History Tobacco Use Types Packs/Day Years [...] 9:50 AM EDT Office Visit SEP Neurology [facility] [address] [place] [address] Brien Hogan MD [address] [place] [address] 10/02/2025 9:00 AM EST Appointment [place] [address] [place] [address] 10/02/2025 9:30 AM EST Appointment [address] [place] [address] Kym Bell APRN [address] [facility] [address] [place] [id number] 10/03/2025 8:30 AM EST Appointment [address] [place] [address] 10/04/2025 8:30 AM EST Appointment [address] [place] [address] documented as of this encounter Visit Diagnoses Not on filedocumented in this encounter Care Teams Credit Collection Associate Relationship Specialty Start Date End Date Becca Dumont APRN [address] [facility] [address] [place] [phone] PCP - General Nurse Practitioner 05/05/17 Reva Jacob MD [address] [facility] [address] [place] [id number] Medical Oncologist Internal Medicine-Hematology and Oncology 07/14/21 documented as of this encounter
== END 2025-09-19 23:59 | disposition home or self-care (01) ==
LOC: LAB.DROPOF 09-20 12:42
PROVIDERS: PCP Nurse Practitioner; Visit Provider Nurse Practitioner
DX: E55.9 Vitamin D deficiency, unspecified (principal); I10 Essential (primary) hypertension; E78.49 Other hyperlipidemia; R73.01 Impaired fasting glucose; E53.8 Deficiency of other specified B group vitamins; Z12.5 Encounter for screening for malignant neoplasm of prostate
CPT/HCPCS: 80053; 80061; 82043; 82306; 82570; 82607; 83036; 84443; 85025; G0103